=== PATIENT | male | born 1975 | race African-American/Black ===

== ENCOUNTER 2018-05-27 14:31 | Emergency (ER) | payer BC ==
[2018-05-27 14:53] VITALS: BMI 25.8
--- NOTE | 2018-05-27 14:54 | PDOC ---
Rapid Medical Evaluation Chief Complaint: Palpitations Medical Evaluation: Allergies Allergy/AdvReac Type Severity Reaction Status Date / Time No Known Allergies Allergy Verified 05/27/18 14:49 05/27/18 14:50 I have performed a brief in-person evaluation of this patient. The patient presents with a chief complaint of:epigastric pain Pertinent physical exam findings: well , abd soft I have ordered the following: ekg done The patient will proceed to the ED for further evaluation.
--- NOTE | 2018-05-27 15:12 | PDOC ---
History of Present Illness - General Chief Complaint: Nausea/Vomiting Stated Complaint: PALPITATIONS Time Seen by Provider: 05/27/18 15:09 History Source: Patient Exam Limitations: No Limitations Past History - Travel Traveled outside of the country in the last 30 days: No Close contact w/someone who was outside of country & ill: No - Past Medical History Allergies/Adverse Reactions: Allergies Allergy/AdvReac Type Severity Reaction Status Date / Time No Known Allergies Allergy Verified 05/27/18 14:49 Home Medications: Ambulatory Orders NK [No Known Home Medication] 05/27/18 Cardiac Disorders: No Hx Myocardial Infarction: No GI Disorders: No HTN: No Hypercholesterolemia: No - Surgical History Abdominal Surgery: No - Family Disease History Family Disease History: Other: Mother (stroke, age 65) - Immunization History Immunization Up to Date: Yes - Suicide/Smoking/Psychosocial Hx Smoking History: Never smoked Hx Alcohol Use: No Drug/Substance Use Hx: No Review of Systems - Review of Systems Able to Perform ROS?: Yes Is the patient limited French proficient: No *Physical Exam - Vital Signs Last Vital Signs Temp Pulse Resp BP Pulse Ox 98.3 F 82 18 134/93 100 05/27/18 14:50 05/27/18 14:50 05/27/18 14:50 05/27/18 14:50 05/27/18 14:50 Moderate Sedation - Procedure Monitoring Vital Signs: Procedure Monitoring Vital Signs Temperature 98.3 F 05/27/18 14:50 Pulse Rate 82 05/27/18 14:50 Respiratory Rate 18 05/27/18 14:50 Blood Pressure 134/93 05/27/18 14:50 O2 Sat by Pulse Oximetry (%) 100 05/27/18 14:50 ED Treatment Course - LABORATORY CBC & Chemistry Diagram: 05/27/18 15:40 05/27/18 15:40 Medical Decision Making - Medical Decision Making Pt was seen at bedside, also will be seen by attending Dr. Joe. Pt presenting with complaints of burning diffuse abdominal pain, worse in the epigastric area. The pain started about 3 days ago, and has been associated with vomiting and abdominal cramping before BMs since yesterday. Pt states the pain is worsened after eating. Pt also admits to dysuria x1 week. Pt recently moved from [facility] 1 year ago and did not have regular PCP follow-up while in [facility]. PE showed no abdominal tenderness during palpation, no rebound, no guarding. No CVA tenderness. Considering gastritis/reflux, vs cholecystitis vs pancreatitis vs gastroenteritis vs appendicitis vs ACS. Pt has no risk factors for ACS ( negative family history, nonsmoker, no HTN). Ordered work-up including CBC, CMP, PT/INR, Provided GI cocktail (40 mg IV pepcid, viscous lidocaine, 30 mg maalox) and IV 1 L NS for improvement of pain/indigestion. Will continue to reassess pt and monitor for symptomatic improvement. ECG showed NSR, normal intervals, no significant ST elevations or depressions. Bedside US showed contracted GB, no GB distension or CBD distension or stones. 05/27/18 16:35 Labs generally WNL. Trop <.02, lipase 125 UA negative for infection. Pt will be taken for CT abd/pelvis with IV contrast to r/o appendicitis and other abdominal pathology. 05/27/18 17:32 Chest x-ray showed no acute pathology. Pt in CT scan. 05/27/18 17:[address] scan read for disposition. Pt signed out to next resident team. Explained presentation, ED course, any pending results, and needed interventions to resident Dr. Russ. 05/27/18 18:47 *DC/Admit/Observation/Transfer Diagnosis at time of Disposition: Abdominal pain Qualifiers: Abdominal location: epigastric Qualified Code(s): R10.13 - Epigastric pain - Discharge Dispostion Disposition: HOME Condition at time of disposition: Improved Decision to Admit order: No - Referrals Referrals: [facility] [place] [Provider Group] Sanchez Arboleda MD [Staff Physician] - - Patient Instructions Printed Discharge Instructions: DI for Epigastric Pain Additional Instructions: You were seen in the ER today for abdominal pain. The results of your labs today were normal. Please follow-up with the primary care doctor appointment that was made for you to discuss your visit and make sure your symptoms have improved. Please return to the ER if you have any worsening pain, development of fevers or chills, blood in the vomit or stool, loss of consciousness, inability to tolerate food or fluids, or any other concerns. - Post Discharge Activity
[2018-05-27] MEDS ORDERED: SODIUM CHLORIDE 1,000 ML IV STA (15:30)
[2018-05-27] MEDS ORDERED: ONDANSETRON 4 MG/2 ML VIAL IVPUSH ONE (15:30)
[2018-05-27] MEDS ORDERED: FAMOTIDINE 20 MG/50 ML IVPB 20 MG/50 ML MG IVPB ONE ×2 (15:30→15:38)
[2018-05-27] MEDS ORDERED: MAG HYDROX/AL HYDROX/SIMETH 30 ML UNIT-DOSE CUP PO ONE (15:30)
[2018-05-27] MEDS ORDERED: LIDOCAINE VISCOUS 2% ORAL/TOP 20 ML UNIT-DOSE CUP MM ONE (15:31)
[2018-05-27] MEDS ORDERED: LIDOCAINE VISCOUS 2% ORAL/TOP 20 ML UNIT-DOSE CUP ONE (15:37)
[2018-05-27] MEDS ORDERED: MAG HYDROX/AL HYDROX/SIMETH 30 ML UNIT-DOSE CUP ONE (15:37)
[2018-05-27] MEDS ORDERED: ONDANSETRON 4 MG/2 ML VIAL ONE (15:37)
[2018-05-27 16:15] LABS: BASO % 0.2 % (0-2.0); EOS % 6.8 % (0-4.5); HEMATOCRIT 47.1 % (35.4-49); HEMOGLOBIN 16.1 GM/dL (11.7-16.9); LYMPH % 22.3 % (8-40); MCH 28.2 pg (25.7-33.7); MCHC 34.1 g/dl (32.0-35.9); MEAN CELL VOLUME 82.7 fl (80-96); NEUT % 62.7 % (42.8-82.8); RBC 5.69 M/mm3 (4.00-5.60); RDW 13.7 % (11.9-15.9); WHITE BLOOD COUNT 4.8 K/mm3 (4.0-10.0)
--- NOTE | 2018-05-27 16:38 | PDOC ---
Attending Attestation - Resident Resident Name: Lindsey Vargas - ED Attending Attestation I have performed the following: I have examined & evaluated the patient, The case was reviewed & discussed with the resident, I agree w/resident's findings & plan, Exceptions are as noted - HPI HPI: 05/27/18 16:32 42-year-old male no history of past medical problems here today complaining of epigastric and lower abdominal pain. Patient states his symptoms started 3-4 days ago has had intermittent nausea and vomiting denies weight loss fever or chills does describe some dysuria with urination no flank pain pain is generalized no moderating factors he describes as sharp. No known history of reflux or cholelithiasis patient is from [facility] and has been recently moved to [place] one year ago - Physicial Exam PE: 05/27/18 16:36 Awake alert no acute distress lungs are clear bilaterally heart is regular without any murmurs rubs or gallops abdomen is soft mild epigastric tenderness also has mild bilateral lower quadrant tenderness no rebound no guarding no CVA tenderness neuro alert and oriented 3 skin warm and dry no rash - Medical Decision Making 05/27/18 16:38 Differential diagnosis includes gastritis, GERD, reflux, pancreatitis, cholelithiasis, cholecystitis, UTI pyelonephritis. In plan focus ED ultrasound right upper quadrant labs including CBC CMP and lipase. GI cocktail Focus ED ultrasound right upper quadrant patient: Epigastric pain Gallbladder was scanned into planes using the curvilinear probe. No wall thickening edema or pericholecystic fluid. The ultrasound is somewhat limited due to the fact the gallbladder has a contracted appearance CBD measured 2.8 mm wall was upper limits of normal but contracted impression contracted gallbladder UA pending labs are unremarkable if UAs negative will consider CT abdomen and pelvis to rule out other causes of abdominal pain mentioned above
[2018-05-27 16:40] LABS: URINE APPEARANCE CLEAR; URINE BILIRUBIN NEGATIVE (<2.0 mg/dL); URINE COLOR YELLOW; URINE GLUCOSE (UA) NEGATIVE (NEGATIVE); URINE KETONE TRACE (NEGATIVE); URINE LEUK ESTERASE NEGATIVE (NEGATIVE); URINE NITRITE NEGATIVE (NEGATIVE); URINE PROTEIN NEGATIVE (NEGATIVE); URINE UROBILINOGEN NEGATIVE mg/dL (0.2-1.0)
[2018-05-27 16:46] LABS: ALK PHOS 71 U/L (45-117); ANION GAP 5 MMOL/L (8-16); BILIRUBIN,TOTAL 0.6 mg/dL (0.2-1); BLOOD UREA NITROGEN 22 mg/dL (7-18); CHLORIDE 103 mmol/L (98-107); CO2 29 mmol/L (21-32); CREATININE 1.2 mg/dL (0.55-1.3); GLUCOSE,RANDOM 80 mg/dL (74-106); LIPASE 125 U/L (73-393); POTASSIUM 4.1 mmol/L (3.5-5.1); SGOT/AST 38 U/L (15-37); SGPT/ALT 42 U/L (13-61); SODIUM 137 mmol/L (136-145); TOT PROT 7.5 g/dl (6.4-8.2)
[2018-05-27 16:58] LABS: PLATELET COUNT 101 K/MM3 (134-434); PLATELET ESTIMATE DECREASED
[2018-05-27 17:24] LABS: INR 1.18 (0.83-1.09)
[2018-05-27 18:51] VITALS: BP 114/78; PULSE 78; TEMP 98.2
--- NOTE | 2018-05-28 09:48 | EKG ---
Test Reason : Blood Pressure : / mmHG Vent. Rate : 067 BPM Atrial Rate : 067 BPM P-R Int : 140 ms QRS Dur : 090 ms QT Int : 384 ms P-R-T Axes : 071 061 050 degrees QTc Int : 405 ms POOR DATA QUALITY, INTERPRETATION MAY BE ADVERSELY AFFECTED NORMAL SINUS RHYTHM WITH SINUS ARRHYTHMIA POSSIBLE LEFT ATRIAL ENLARGEMENT BORDERLINE ECG NO PREVIOUS ECGS AVAILABLE Confirmed by IMTIAZ HEART, RODNEY ([id number]) on 05/28/2018 9:47:37 AM Referred By: Confirmed By:RODNEY KITCHEN MD
== END 2018-05-27 20:05 | disposition home or self-care (01) ==
LOC: JER 14:31
PROC: 3E033GC Introduction of Other Therapeutic Substance into Peripheral Vein, Percutaneous Approach (ICD-10-PCS; principal; 2018-05-27)
PROC: 3E033GC Introduction of Other Therapeutic Substance into Peripheral Vein, Percutaneous Approach (ICD-10-PCS; 2018-05-27)
PROC: BF42ZZZ Ultrasonography of Gallbladder (ICD-10-PCS; 2018-05-27)
DX: R10.13 Epigastric pain (principal)
CPT/HCPCS: 36415; 71046-TC-FY; 74177-TC; 80053; 81003; 83690; 84484; 85025; 85610; 87086; 93005; 93010; 99282-25; C1887; J7030

== ENCOUNTER 2018-05-29 18:44 | Inpatient (IN) | payer BC ==
--- NOTE | 2018-05-29 18:57 | PDOC ---
Rapid Medical Evaluation Chief Complaint: Pain, Acute Medical Evaluation: Allergies Allergy/AdvReac Type Severity Reaction Status Date / Time No Known Allergies Allergy Verified 05/29/18 18:54 I have performed a brief in-person evaluation of this patient. The patient presents with a chief complaint of: Epigastric pain x 3 days with emesis; seen 2 days for similar complaints and had labs, ultrasound and CT done. Denies diarrhea. Patient noted having hematemesis today. CT A/P shows concern for ileus and possible colitis (though no explanation of CT imaging is written in the prior notes). Last BM today. The patient will proceed to the ED for further evaluation. 05/29/18 18:55
[2018-05-29] MEDS ORDERED: PANTOPRAZOLE SODIUM 40 MG VIAL IVPUSH ONE (19:01)
[2018-05-29] MEDS ORDERED: ONDANSETRON 4 MG/2 ML VIAL IVPUSH ONE (19:01)
[2018-05-29] MEDS ORDERED: SODIUM CHLORIDE 1,000 ML IV STA (19:01)
[2018-05-29 20:15] LABS: BASO % 0.2 % (0-2.0); EOS % 6.3 % (0-4.5); HEMATOCRIT 48.7 % (35.4-49); HEMOGLOBIN 16.8 GM/dL (11.7-16.9); LYMPH % 18.3 % (8-40); MCH 28.3 pg (25.7-33.7); MCHC 34.4 g/dl (32.0-35.9); MEAN CELL VOLUME 82.3 fl (80-96); MONO % 6.7 % (3.8-10.2); NEUT % 68.5 % (42.8-82.8); PLATELET COUNT 120 K/MM3 (134-434); RBC 5.91 M/mm3 (4.00-5.60); RDW 13.5 % (11.9-15.9); WHITE BLOOD COUNT 5.5 K/mm3 (4.0-10.0)
[2018-05-29 20:43] LABS: ALBUMIN 4.2 g/dl (3.4-5.0); ALK PHOS 71 U/L (45-117); ANION GAP 5 MMOL/L (8-16); BILIRUBIN,TOTAL 0.7 mg/dL (0.2-1); BLOOD UREA NITROGEN 16 mg/dL (7-18); CALCIUM 9.1 mg/dL (8.5-10.1); CHLORIDE 103 mmol/L (98-107); CO2 31 mmol/L (21-32); CREATININE 1.2 mg/dL (0.55-1.3); GLUCOSE,RANDOM 106 mg/dL (74-106); LIPASE 124 U/L (73-393); POTASSIUM 3.9 mmol/L (3.5-5.1); SGOT/AST 39 U/L (15-37); SGPT/ALT 39 U/L (13-61); SODIUM 138 mmol/L (136-145)
[2018-05-29] MEDS ORDERED: ONDANSETRON 4 MG/2 ML VIAL ONE (20:48)
[2018-05-29] MEDS ORDERED: PANTOPRAZOLE SODIUM 40 MG VIAL ONE ×2 (20:48→20:49)
--- NOTE | 2018-05-29 21:09 | PDOC ---
Attending Attestation - HPI HPI: 05/29/18 21:58 The patient is a 42 year old male with no significant past medical history who presents to the ED with epigastric pain for several days. The patient was seen in the ED 2 day ago for epigastric pain, US negative, CT showed ileus vs ileitis and was discharged home. Patient followed up with PCP earlier today and was prescribed medication that he has not yet picked up. Patient comes into the ED today for worsening epigastric pain, and an episode of nausea and dry heaving with slight blood. Patient also reports one normal bowel movement earlier today and is able to pass gas. Denies fever or chills. Denies vomiting. Denies chest pain or shortness of breath. Denies nasal congestion or headache. Denies dysuria or change in urinary output. Denies any other symptoms. - Physicial Exam PE: 05/29/18 21:58 Constitutional: Awake, alert, oriented. No acute distress. Head: Normocephalic. Atraumatic Eyes: PERRL. EOMI. Conjunctivae are not pale. ENT: Mucous membranes are moist and intact. Posterior pharynx without exudates or erythema. Uvula midline. Neck: Supple. Full ROM. No lymphadenopathy. Cardiovascular: Regular rate. Regular rhythm. S1, S2 regular. Distal pulses are 2+ and symmetric. Pulmonary/Chest: No evidence of respiratory distress. Clear to auscultation bilaterally No wheezing, rales or rhonchi. Abdominal: + Right inguinal hernia that is reducible. mild mid abdominal pain. Soft and non-distended. . No rebound, guarding or rigidity. No organomegaly. No palpable masses. Good bowel sounds. Back: No CVA tenderness. Musculoskeletal: No edema. No cyanosis. No clubbing. Full range of motion in all extremities. Nocalf tenderness. Radial/pedal pulses are intact and 2+ bilaterally Skin: Skin is warm and dry. No petechiae. No purpura. Neurological: Alert and oriented to person, place, and time. Cranial nerves II -XII are grossly intact. Normal speech. Strength is grossly symmetric. No sensory deficits. Psychiatric: Good eye contact. Normal interaction, affect and behavior. <Yadira Latham - Last Filed: 05/29/18 21:57> - Resident Resident Name: Lindsey Vargas - ED Attending Attestation I have performed the following: I have examined & evaluated the patient, The case was reviewed & discussed with the resident, I agree w/resident's findings & plan, Exceptions are as noted - Medical Decision Making 05/29/18 21:09 I, Dr. Daja Diaz, DO, attest that this document has been prepared under my direction and personally reviewed by me in its entirety. I further attest, that it accurately reflects all work, treatment, procedures and medical decision -making performed by me. 05/29/18 21:53 a/p: 42yo male with abd pain - had bm and passing flatus, dry heaving today -had a poss ileus [address] -will send labs -will repeat abd xray - eval for dilated loops -abd is nondistended -pt is nontoxic in appearance 05/30/18 00:11 persistent ileus on xray with n/v today -did have a bm -will place in obs resident discussed the case with [facility] who accepts pt to service <Daja Diaz - Last Filed: 05/30/18 00:17> Attestations - Attestations 05/29/18 21:58 Documentation prepared by Yadira Latham, acting as medical record technician for Daja Diaz DO <Yadira Latham - Last Filed: 05/29/18 21:57>
--- NOTE | 2018-05-29 21:10 | PDOC ---
History of Present Illness - General Chief Complaint: Pain, Acute Stated Complaint: CHEST/STOMACH PAIN Time Seen by Provider: 05/29/18 21:04 History Source: Patient Exam Limitations: No Limitations - History of Present Illness Initial Comments: Pt is a 42 yo M, with no significant PMH, who is is presenting with complaints of burning diffuse abdominal pain, worse in the epigastric area, and emesis with streaks of blood. The pain started about 5 days ago, and has been associated with vomiting and abdominal cramping before BMs since his last visit to the ER on 05/27. Pt states the pain is worsened after eating, and comes about 30 minutes after a meal. Today the pt was dry-heaving in an attempt to vomit, put his fingers in his throat, and noticed small streaks of blood ("less than a spoonful"). Pt also admits to dysuria x1-2 weeks, with no hematuria, and was told in [place] he has "a big prostate". Pt recently moved from [facility] 1 year ago and did not have regular PCP follow-up while in [facility]. Pt was last seen at [facility] 2 days ago, and had work-up done at that time which showed negative troponin, no UTI, and CT with possible ileus/colitis/diverticulitis. Pt went to his PCP appointment today (which was scheduled for him during last ER visit) , but went home to have a BM and was unable to take any of the medications the PCP sent to the pharmacy because he was feeling worse. His BMs are normal for him with no blood. He has been tolerating minimal food and fluid intake due to abdominal discomfort and nausea. Pt denies any fevers/chills, headache, vision changes, chest pain, palpitations, SOB, diarrhea/constipation, or leg swelling. Social: Pt denies any cigarette, alcohol, or drug use. Pt denies any recent sick contacts, but came from [facility] x1 year ago. Surgical: no relevant history Family: mother with stroke age 65 05/30/18 18:17 Past History - Travel Traveled outside of the country in the last 30 days: No Close contact w/someone who was outside of country & ill: No - Past Medical History Allergies/Adverse Reactions: Allergies Allergy/AdvReac Type Severity Reaction Status Date / Time No Known Allergies Allergy Verified 05/29/18 18:54 Home Medications: Ambulatory Orders Omeprazole 20 mg PO DAILY 05/30/18 Cardiac Disorders: No COPD: No Diabetes: No GI Disorders: No HTN: No Hypercholesterolemia: No Other medical history: "enlarged prostate" - Surgical History Abdominal Surgery: No GI Surgery: No - Family Disease History Family Disease History: Other: Mother (stroke, age 65) - Immunization History Immunization Up to Date: Yes - Suicide/Smoking/Psychosocial Hx Smoking History: Never smoked Hx Alcohol Use: No Drug/Substance Use Hx: No Review of Systems - Review of Systems Able to Perform ROS?: Yes Is the patient limited Persian proficient: No Constitutional: Yes: Loss of Appetite, Weight Stable. No: Chills, Diaphoresis, Fever, Weakness HEENTM: No: Recent change in vision, Nose Congestion, Throat Pain, Throat Swelling, Difficulty Swallowing Respiratory: No: Cough, Orthopnea, Shortness of Breath Cardiac (ROS): No: Chest Pain, Edema, Lightheadedness, Palpitations, Syncope, Chest Tightness ABD/GI: Yes: Nausea, Poor Appetite, Poor Fluid Intake, Vomiting, Indigestion, Abdominal cramping, Other (blood streak vomit). No: Abdominal Distended, Abd. Pain w/ defecation, Blood Streaked Bowels, Constipated, Diarrhea, Rectal Bleeding, Tarry Stools : Yes: Burning, Dysuria, Pain. No: Discharge, Frequency, Flank Pain, Hematuria, Incontinence, Urgency, Testicular Pain Musculoskeletal: No: Back Pain, Joint Pain, Muscle Weakness Integumentary: No: Rash Neurological: No: Headache, Numbness, Weakness, Unsteady Gait, Ataxia, Dizziness Psychiatric: Yes: Change in Appetite (only due to abdominal discomfort). No: Sleep Pattern Change Endocrine: No: Increased Urine, Change in Weight Hematologic/Lymphatic: No: Anemia, Blood Clots, Easy Bleeding, Easy Bruising All Other Systems: Reviewed and Negative *Physical Exam - Vital Signs Last Vital Signs Temp Pulse Resp BP Pulse Ox 98.2 F 76 16 147/97 97 05/29/18 18:54 05/29/18 18:54 05/29/18 18:54 05/29/18 18:54 05/29/18 18:54 - Physical Exam General Appearance: Yes: Nourished, Appropriately Dressed. No: Apparent Distress HEENT: positive: EOMI, WYATT, Normal ENT Inspection, Normal Voice, Pharynx Normal , Hearing Grossly Normal. negative: Scleral Icterus (R), Scleral Icterus (L), Pharyngeal Erythema, Tonsillar Exudate, Tonsillar Erythema, Rhinorrhea Neck: positive: Trachea midline, Normal Thyroid, Supple. negative: Tender, Rigid, Lymphadenopathy (R), Lymphadenopathy (L), Rigidity Respiratory/Chest: positive: Lungs Clear, Normal Breath Sounds. negative: Chest Tender, Respiratory Distress, Accessory Muscle Use, Decreased Breath Sounds, Crackles, Wheezing Cardiovascular: positive: Regular Rhythm, Regular Rate, S1, S2. negative: Edema , JVD, Murmur Vascular Pulses: Carotid (R): 4+, Carotid (L): 4+ Gastrointestinal/Abdominal: positive: Normal Bowel Sounds, Tender (mild epigastric, no rebound no guarding), Flat, Soft. negative: Organomegaly, Pulsatile Mass, Distended, Guarding, Rebound Rectal Exam: positive: heme negative stool, normal exam, NL Prostate, normal rectal tone. negative: melena, heme positive stool, hemorrhoids Lymphatic: negative: Adenopathy, Tenderness Musculoskeletal: positive: Normal Inspection. negative: CVA Tenderness Extremity: positive: Normal Capillary Refill, Normal Inspection, Normal Range of Motion, Pelvis Stable. negative: Tender, Pedal Edema Integumentary: positive: Normal Color, Dry, Warm. negative: Jaundice, Clammy, Diaphoresis, Rash, Ecchymosis Neurologic: positive: crystal calibrator II-XII NML intact, Fully Oriented, Alert, Normal Mood/ Affect, Normal Response, Motor Strength 5/5 Moderate Sedation - Procedure Monitoring Vital Signs: Procedure Monitoring Vital Signs Temperature 98.2 F 05/29/18 18:54 Pulse Rate 76 05/29/18 18:54 Respiratory Rate 16 05/29/18 18:54 Blood Pressure 147/97 05/29/18 18:54 O2 Sat by Pulse Oximetry (%) 97 05/29/18 18:54 ED Treatment Course - LABORATORY CBC & Chemistry Diagram: 05/30/18 06:00 05/30/18 06:00 - ADDITIONAL ORDERS Additional order review: Laboratory Results 05/29/18 19:56 Sodium 138 Potassium 3.9 Chloride 103 Carbon Dioxide 31 Anion Gap 5 L BUN 16 Creatinine 1.2 Creat Clearance w eGFR > 60 Random Glucose 106 Calcium 9.1 Total Bilirubin 0.7 AST 39 H ALT 39 Alkaline Phosphatase 71 Total Protein 8.0 Albumin 4.2 Lipase 124 05/29/18 19:56 RBC 5.91 H MCV 82.3 MCHC 34.4 RDW 13.5 MPV 12.0 H Neutrophils % 68.5 Lymphocytes % 18.3 Monocytes % 6.7 Eosinophils % 6.3 H Basophils % 0.2 - Medications Given in the ED: ED Medications Discontinued Medications Generic Name Dose Route Start Last Admin Trade Name Gerardo PRN Reason Stop Dose Admin Sodium Chloride 1,000 mls @ 1,000 mls/hr 05/29/18 19:01 05/29/18 21:03 Normal Saline - IV 05/29/18 20:00 1,000 mls/hr ASDIR STA Administration Ondansetron HCl 4 mg 05/29/18 19:01 05/29/18 21:03 Zofran Injection IVPUSH 05/29/18 19:02 4 mg ONCE ONE Administration Pantoprazole Sodium 40 mg 05/29/18 19:01 05/29/18 21:03 Protonix Iv IVPUSH 05/29/18 19:02 40 mg ONCE ONE Administration Medical Decision Making - Medical Decision Making Pt was seen at bedside, also seen by Dr. Diaz. Pt is presenting with complaints of burning diffuse abdominal pain, worse in the epigastric area, and emesis with streaks of blood. The pain started about 5 days ago, and has been associated with vomiting and abdominal cramping before BMs since his last visit to the ER on 05/27. Pt states the pain is worsened after eating, and comes about 30 minutes after a meal. Today the pt was dry-heaving in an attempt to vomit, put his fingers in his throat, and noticed small streaks of blood ("less than a spoonful"). Pt also admits to dysuria x1-2 weeks, with no hematuria, and was told in [place] he has "a big prostate". Pt recently moved from [facility] 1 year ago and did not have regular PCP follow-up while in [facility]. Pt was last seen at [facility] 2 days ago, and had work-up done at that time which showed negative troponin, no UTI, and CT with possible ileus/colitis/diverticulitis. Pt went to his PCP appointment today (which was scheduled for him during last ER visit) , but went home to have a BM and was unable to take any of the medications the PCP sent to the pharmacy because he was feeling worse. His BMs are normal for him with no blood. He has been tolerating minimal food and fluid intake due to abdominal discomfort and nausea. Pt denies any fevers/chills, headache, vision changes, chest pain, palpitations, SOB, diarrhea/constipation, or leg swelling. Abd/pelvis CT from last visit 05/27/2018: Impression: Lack of oral contrast administration is limiting this exam. Mild dilatation of the proximal small bowel loops with air-fluid levels suggestive of ileus. Cannot rule out ileitis. Likely partial visualization of a normal-appearing appendix. No secondary signs of acute appendicitis are identified. Nondistention of the colon limiting evaluation of its wall. Thickening of the distal descending and sigmoid colon wall down to the rectosigmoid junction cannot be excluded. Cannot rule out colitis. Correlate clinically and further evaluation is needed. Diverticulosis coli in the mid sigmoid colon without evidence of acute diverticulitis. PE showed mild epigastric tenderness during palpation, no rebound, no guarding. No CVA tenderness. Considering ileus vs gastritis/reflux, vs colitis/diverticulitis. Pt has no risk factors for ACS (negative family history, nonsmoker, no HTN) and cardiac work-up 2 days ago was negative. Ordered work-up including CBC, CMP, abdomen x-ray (3 views). Provided 1 L IV NS, 4 mg IV zofran, 40 mg IV protonix. Will continue to reassess pt and monitor for symptomatic improvement. 05/29/18 21:40 CBC showed no >WBC, but eosionphilic predominance. CMP generally WNL. Abdominal x-ray showed continued ileus with air fluid levels throughout. Stool for occult blood negative. Rectal exam showed no prostate tenderness, prostate soft/non-nodular. Paged hospitalist team for admission. 05/29/18 22:24 (entered later) Pt was accepted by hospitalist team and was seen shortly after initial page in the ER. Pt was lying comfortably, pain well-controlled. Pt was discussed with night resident team for serial reassessments. Pt was transferred to [facility] in cardiac cath holding area and has been evaluated by hospitalist team. 05/30/18 12:20 05/30/18 18:12 *DC/Admit/Observation/Transfer Diagnosis at time of Disposition: Ileus Intractable vomiting Qualifiers: Vomiting type: unspecified Nausea presence: with nausea Qualified Code(s): R11.2 - Nausea with vomiting, unspecified Abdominal pain Qualifiers: Abdominal location: epigastric Qualified Code(s): R10.13 - Epigastric pain - Discharge Dispostion Condition at time of disposition: Stable Decision to Admit order: Yes - Referrals - Patient Instructions - Post Discharge Activity
--- NOTE | 2018-05-30 00:34 | HP ---
CHIEF COMPLAINT: PCP: HISTORY OF PRESENT ILLNESS: 42 yo M with no significant PMH who p/w epigastric pain and vomiting worse w/ food x5d. The patient was seen in the ER 2 day ago for epigastric pain and vomiting and CT showed ileus vs ileitis vs colitis, but he was discharged. Abd U /S at that time was nl. Patient followed up with PCP earlier today and was prescribed medication that he has not yet picked up. Patient comes into the ER today for worsening epigastric pain, and an episode of nausea and dry heaving with slight blood. Patient also reports one normal bowel movement earlier today and is able to pass gas. Denies fever or chills. He has been in [facility] within the past 1 year. work-up done at last ED visit negative troponin, no UTI, Of note, admits to dysuria, dribbling, straining to pee, was told in [place] he has enlarged prostate. ER course was notable for: (1)1L NS, protonix 40, zofran (2)Abd XR, FOBT neg, lipase 124 (3)eosinophilia 6.3 Recent Travel: PAST MEDICAL HISTORY: Pt recently moved from [facility] 1 year ago and did not have regular PCP follow-up while in [facility]. 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 HEAD: Normal with no signs of trauma. EYES: Pupils equal, round and reactive to light, extraocular movements intact, sclera anicteric, conjunctiva clear. No lid lag. EARS, NOSE, THROAT: Ears normal, nares patent, oropharynx clear without exudates. Moist mucous membranes. NECK: Normal range of motion, supple without lymphadenopathy, JVD, or masses. LUNGS: Breath sounds equal, clear to auscultation bilaterally. No wheezes, and no crackles. No accessory muscle use. HEART: Regular rate and rhythm, normal S1 and S2 without murmur, rub or gallop. ABDOMEN: Soft, mild diffuse ttp, not distended, normoactive bowel sounds, no guarding, no rebound, no masses. MUSCULOSKELETAL: Normal range of motion at all joints. No bony deformities or tenderness. UPPER EXTREMITIES: 2+ pulses, warm, well-perfused. No cyanosis. No clubbing. No peripheral edema. LOWER EXTREMITIES: 2+ pulses, warm, well-perfused. No calf tenderness. No peripheral edema. NEUROLOGICAL: Cranial nerves II-XII intact. Normal speech. PSYCHIATRIC: Cooperative. Good eye contact. Appropriate mood and affect. SKIN: Warm, dry, normal turgor, no rashes or lesions noted, normal capillary refill. Laboratory Results - last 24 hr 05/29/18 05/29/18 05/29/18 19:56 19:56 22:00 WBC 5.5 RBC 5.91 H Hgb 16.8 Hct 48.7 MCV 82.3 MCH 28.3 MCHC 34.4 RDW 13.5 Plt Count 120 L MPV 12.0 H Absolute Neuts (auto) 3.7 Neutrophils % 68.5 Lymphocytes % 18.3 Monocytes % 6.7 Eosinophils % 6.3 H Basophils % 0.2 Nucleated RBC % 0 Sodium 138 Potassium 3.9 Chloride 103 Carbon Dioxide 31 Anion Gap 5 L BUN 16 Creatinine 1.2 Creat Clearance w eGFR > 60 Random Glucose 106 Calcium 9.1 Total Bilirubin 0.7 AST 39 H ALT 39 Alkaline Phosphatase 71 Total Protein 8.0 Albumin 4.2 Lipase 124 Stool Occult Blood Negative ASSESSMENT/PLAN: 42 yo M with no significant PMH who p/w epigastric pain and vomiting worse w/ food x5d. CT showed ileus vs ileitis vs colitis Colitis/Ileitis ? - CT showed ileus vs ileitis vs colitis. Abd U/S. f/u Abd XR FOBT neg, lipase 124 s/p 1L NS, protonix 40, zofran in ED IV flagyl and rocephin IV NS 125cc NPO zofran and protonix. GI consult ID consult f/u EKG for Qtc eosinophilia and thrombocytopenia - will send blood and stool tests for parasites, no diarrhea noted consider blood tests for tick borne diseases. BPH? - admits to dysuria, dribbling, straining to pee, was told in [place] he has enlarged prostate. urology referral consider prostate sonogram PSA FEN NS 125cc replete prn NPO DVT prophylaxis - Lovenox 40 mg SQ q 24 hours. Advance directives - Full code Dispo Obs Visit type - Emergency Visit Emergency Visit: Yes ED Registration Date: 05/29/18 Care time: The patient presented to the Emergency Department on the above date and was hospitalized for further evaluation of their emergent condition. - New Patient This patient is new to me today: Yes Date on this admission: 05/30/18 - Critical Care Critical Care patient: No
[2018-05-30] MEDS ORDERED: ONDANSETRON 4 MG/2 ML VIAL IVPUSH PRN (01:38)
[2018-05-30] MEDS ORDERED: SODIUM CHLORIDE 1,000 ML IV SCH (01:45)
--- NOTE | 2018-05-30 03:28 | PN ---
Teaching Attending Note Name of Resident: Almas Yost ATTENDING PHYSICIAN STATEMENT I saw and evaluated the patient. I reviewed the resident's note and discussed the case with the resident. I agree with the resident's findings and plan as documented. SUBJECTIVE: Patient is a 42 year old male with no significant PMH who presents to the ER with epigastric pain for several days. The patient was seen in the ER 2 day ago for epigastric pain and vomiting and CT showed ileus vs ileitis vs colitis, but he was discharged. Patient followed up with PCP earlier today and was prescribed medication that he has not yet picked up. Patient comes into the ER today for worsening epigastric pain, and an episode of nausea and dry heaving with slight blood. Patient also reports one normal bowel movement earlier today and is able to pass gas. Denies fever or chills. He has been in [facility] within the past 1 year. OBJECTIVE: Alert Vital Signs Period Temp Pulse Resp BP Sys/Goodman Pulse Ox Last 24 Hr 98.2 F 76 16 147/97 97 HEENT: No Jaundice, eye redness or discharge, PERRLA, EOMI. Normocephalic, atraumatic. External ears are normal and hearing is grossly intact. No nasal discharge. Neck: Supple, nontender. No palpable adenopathy or thyromegaly. No JVD Chest: Good effort. Clear to auscultation and percussion. Heart: Regular. No S3, rub or murmur Abdomen: Not distended, soft, mildly tender and no HSM. No rebound or guarding. Normoactive bowel sounds. Ext: Peripheral pulses intact. No leg edema. Skin: Warm and dry. No petechiae, rash or ecchymosis. Neuro: Alert. Oriented x3. CN 2-12 grossly intact. Sensation grossly intact in all four extremities and DTR are symmetric. Current Medications Generic Name Dose Route Start Last Admin Trade Name Freq PRN Reason Stop Dose Admin Enoxaparin Sodium 40 mg 05/30/18 10:00 Lovenox - SQ DAILY VINCENT Sodium Chloride 1,000 mls @ 125 mls/hr 05/30/18 01:45 05/30/18 02:35 Normal Saline - IV 125 mls/hr ASDIR VINCENT Administration Metronidazole 500 mg in 100 mls @ 100 mls/hr 05/30/18 03:00 05/30/18 03:06 Flagyl 500mg Premixed Ivpb - IVPB 100 mls/hr Q6H-IV VINCENT Administration Ceftriaxone Sodium 1 gm/ 50 mls @ 100 mls/hr 05/30/18 10:00 Dextrose IVPB DAILY VINCENT Protocol Ondansetron HCl 4 mg 05/30/18 01:38 Zofran Injection IVPUSH Q6H PRN NAUSEA Pantoprazole Sodium 40 mg 05/30/18 10:00 Protonix Iv IVPUSH DAILY [facility] Home Medications Medication Instructions Recorded NK [No Known Home Medication] 05/27/18 Abnormal Lab Results 05/29/18 05/29/18 19:56 19:56 RBC 5.91 H Plt Count 120 L MPV 12.0 H Eosinophils % 6.3 H Anion Gap 5 L AST 39 H ASSESSMENT AND PLAN: 1. Colitis/Ileitis ? - Will treat with IV flagyl and rocephin as well as IV NS. Keep him NPO, give zofran and protonix. Has eosinophilia and thrombocytopenia - will send blood and stool tests for parasites as well as blood tests for tick borne diseases. Consult GI and ID. Has symptoms of prostatism - get prostate sonogram and PSA. Monitor BP. 2. Obesity - Will provide patient all the necessary assistance, counseling and positive reinforcement to facilitate weight loss. Consult authorization rep. 3. DVT prophylaxis - Lovenox 40 mg SQ q 24 hours. 4. Advance directives - Full code
[2018-05-30 07:40] LABS: BASO % 0.3 % (0-2.0); HEMATOCRIT 45.3 % (35.4-49); HEMOGLOBIN 15.5 GM/dL (11.7-16.9); LYMPH % 30.4 % (8-40); MCH 28.3 pg (25.7-33.7); MCHC 34.1 g/dl (32.0-35.9); MEAN CELL VOLUME 82.9 fl (80-96); MEAN PLT VOLUME 11.8 fl (7.5-11.1); MONO % 9.4 % (3.8-10.2); NEUT % 51.9 % (42.8-82.8); PLATELET COUNT 99 K/MM3 (134-434); RBC 5.46 M/mm3 (4.00-5.60); RDW 13.7 % (11.9-15.9); WHITE BLOOD COUNT 4.4 K/mm3 (4.0-10.0)
[2018-05-30 08:19] LABS: ALBUMIN 3.3 g/dl (3.4-5.0); ALK PHOS 55 U/L (45-117); ANION GAP 7 MMOL/L (8-16); BILIRUBIN,TOTAL 0.9 mg/dL (0.2-1); BLOOD UREA NITROGEN 15 mg/dL (7-18); CALCIUM 8.5 mg/dL (8.5-10.1); CHLORIDE 106 mmol/L (98-107); CO2 28 mmol/L (21-32); CREATININE 1.1 mg/dL (0.55-1.3); GLUCOSE,RANDOM 76 mg/dL (74-106); MAGNESIUM 2.5 mg/dL (1.8-2.4); PHOSPHOROUS 3.2 mg/dL (2.5-4.9); POTASSIUM 3.5 mmol/L (3.5-5.1); SGOT/AST 26 U/L (15-37); SGPT/ALT 32 U/L (13-61); SODIUM 141 mmol/L (136-145); TOT PROT 6.4 g/dl (6.4-8.2)
[2018-05-30] MEDS: DEXTROSE 5%-LACTATED RINGERS 1,000 ML IV SCH (09:24)
--- NOTE | 2018-05-30 09:46 | CON.GI ---
Consult Consult Specialty:: GI - History of Present Illness History of Present Illness: he patient is a 42 year old male with no significant past medical history who presents to the ED with epigastric pain for several days. The patient was seen in the ED 2 day ago for epigastric pain, US negative, CT showed ileus vs ileitis and was discharged home. Patient followed up with PCP earlier today and was prescribed medication that he has not yet picked up. Patient comes into the ED today for worsening epigastric pain, and an episode of nausea and dry heaving with slight blood. Patient also reports one normal bowel movement earlier today and is able to pass gas. Denies fever or chills. Denies vomiting. Denies chest pain or shortness of breath. Denies nasal congestion or headache. Denies dysuria or change in urinary output. Denies any other symptoms. He was also noted to have increased QT interval , thrombocytopenia and multiple air fluid levels by FUA. - Alcohol/Substance Use Hx Alcohol Use: No - Smoking History Smoking history: Never smoked Home Medications - Allergies Allergies/Adverse Reactions: Allergies Allergy/AdvReac Type Severity Reaction Status Date / Time No Known Allergies Allergy Verified 05/29/18 18:54 - Home Medications Home Medications: Ambulatory Orders Omeprazole 20 mg PO DAILY 05/30/18 Review of Systems - Review of Systems Constitutional: denies: No Symptoms, Chills, Diaphoresis, Fever, Lethargy, Loss of Appetite, Malaise, Night Sweats, Unintentional Wgt. Loss, Weakness, Other Eyes: denies: No Symptoms, Blind Spots, Blurred Vision, Double Vision, Eye Pain , Floaters, Photophobia, Recent Change in Vision, Other HENT: denies: No Symptoms, Difficult Swallowing, Ear Discharge, Ear Pain, Epistaxis, Gingival Bleeding, Hearing Loss, Mouth Swelling, Nasal Congestion, Ocular Prosthesis, Throat Pain, Toothache, Ringing in Ears, Other Neck: denies: No Symptoms, Decreased ROM, Lumps, Pain on Movement, Stiffness, Swollen Glands, Tenderness, Other Cardiovascular: denies: No Symptoms, Chest Pain, Edema, Palpitations, Shortness of Breath, Other Respiratory: denies: No Symptoms, Cough, Exercise Intolerance, Hemoptysis, Orthopnea, PND, Snoring, SOB, SOB on Exertion, Wheezing, Other Gastrointestinal: denies: No Symptoms, Abdominal Pain, Bloating, Constipation, Diarrhea, Dysphagia, Indigestion, Melena, Nausea, Rectal Bleeding, Vomiting, Vomiting Blood, Other Physical Exam-GI Vital Signs: Vital Signs Temperature 98.0 F 05/30/18 06:58 Pulse Rate 68 05/30/18 06:58 Respiratory Rate 18 05/30/18 00:00 Blood Pressure 121/66 05/30/18 06:58 O2 Sat by Pulse Oximetry (%) 97 05/30/18 06:58 Constitutional: Yes: No Distress Eyes: Yes: Conjunctiva Clear HENT: Yes: Atraumatic Neck: Yes: Supple Cardiovascular: Yes: Regular Rate and Rhythm Respiratory: Yes: CTA Bilaterally Gastrointestinal Inspection: No: Distention ...Auscultate: Yes: Normoactive Bowel Sounds ...Palpate: Yes: Soft. No: Firm/Rigid, Guarding, Hepatomegaly, Mass, Pulsatile Mass, Splenomegaly, Tenderness, Epigastium (--resolved) Labs: CBC, BMP 05/30/18 06:00 05/30/18 06:00 Problem List - Problems (1) Ileus Assessment/Plan: associated with thrombocytopenia and increased Q-t interval etiology unlcear R>will need Cardiology,surgery, hematology and ID consult HepB and Hep C profile IV hydration serial abdominal examination urine toxicity hypercoaguable state w/u FUA in am Code(s): K56.7 - ILEUS, UNSPECIFIED
--- NOTE | 2018-05-30 11:24 | EKG ---
Test Reason : Blood Pressure : / mmHG Vent. Rate : 070 BPM Atrial Rate : 070 BPM P-R Int : 152 ms QRS Dur : 086 ms QT Int : 402 ms P-R-T Axes : 060 046 036 degrees QTc Int : 434 ms NORMAL SINUS RHYTHM NORMAL ECG WHEN COMPARED WITH ECG OF 27-MAY-2018 14:46, NO SIGNIFICANT CHANGE WAS FOUND Confirmed by RODNEY KITCHEN MD ([id number]) on 05/30/2018 11:24:11 AM Referred By: Confirmed By:RODNEY KITCHEN MD
[2018-05-30] MEDS: ENOXAPARIN NA (PORCINE) 40 MG/0.4 ML DISP.SYRIN SQ SCH (11:42)
[2018-05-30] MEDS: CEFTRIAXONE 1 GM in DEXTROSE 5%-WATER - 50 ML IVPB SCH (11:43)
[2018-05-30] MEDS: PANTOPRAZOLE SODIUM 40 MG VIAL IVPUSH SCH (11:43)
[2018-05-30 12:10] LABS: COCAINE, UR NEGATIVE ng/ml (CUTOFF=300); METHADONE, UR NEGATIVE ng/ml (CUTOFF=300); OPIATES, URI NEGATIVE ng/ml (CUTOFF=300); PHENCYCLIDINE,URINE NEGATIVE ng/ml (CUTOFF=25); URINE AMPHETAMINES NEGATIVE ng/ml (CUTOFF=500); URINE BARBITURATES NEGATIVE ng/ml (CUTOFF=200); URINE BENZODIAZEPINES NEGATIVE ng/ml (CUTOFF=200)
--- NOTE | 2018-05-30 14:23 | PN ---
Physical Exam: SUBJECTIVE: Patient seen and examined this AM. He states that his abdominal pain is better than yesterday and expresses that he is hungry. He states he has had normal bowel movements once or twice daily recently. He initially denied any diarrhea though his is present at bedside and states he did have a few episodes of diarrhea 3 days ago. OBJECTIVE: Vital Signs Period Temp Pulse Resp BP Sys/Goodman Pulse Ox Last 24 Hr 97.7 F-98.2 F 68-77 16-18 102-147/53-97 97-97 GENERAL: A&O, no acute distress HEAD: Normocephalic, atraumatic. EYES: PERRL, no scleral icterus EARS, NOSE, THROAT: oropharynx clear without exudates. Moist mucous membranes. NECK: supple without lymphadenopathy LUNGS: CTA b/l, no crackles or wheezes HEART: Regular rate and rhythm, normal S1 and S2 without murmur ABDOMEN: Soft, some tenderness to palpation diffusely, normoactive bowel sounds MUSCULOSKELETAL: No bony deformities or tenderness. EXTREMITIES: 2+ pulses, warm, well-perfused. No peripheral edema. NEUROLOGICAL: Cranial nerves II-XII grossly intact. Normal speech. PSYCHIATRIC: Cooperative. Good eye contact. Appropriate mood and affect. SKIN: Warm, dry, no rashes or lesions noted Laboratory Results - last 24 hr 05/29/18 05/29/18 05/29/18 19:56 19:56 22:00 WBC 5.5 RBC 5.91 H Hgb 16.8 Hct 48.7 MCV 82.3 MCH 28.3 MCHC 34.4 RDW 13.5 Plt Count 120 L MPV 12.0 H Absolute Neuts (auto) 3.7 Neutrophils % 68.5 Lymphocytes % 18.3 Monocytes % 6.7 Eosinophils % 6.3 H Basophils % 0.2 Nucleated RBC % 0 Sodium 138 Potassium 3.9 Chloride 103 Carbon Dioxide 31 Anion Gap 5 L BUN 16 Creatinine 1.2 Creat Clearance w eGFR > 60 Random Glucose 106 Calcium 9.1 Phosphorus Magnesium Total Bilirubin 0.7 AST 39 H ALT 39 Alkaline Phosphatase 71 C-Reactive Protein Total Protein 8.0 Albumin 4.2 Lipase 124 Stool Occult Blood Negative Opiates Screen Methadone Screen Barbiturate Screen Phencyclidine Screen Ur Amphetamines Screen MDMA (Ecstasy) Screen Benzodiazepines Screen Cocaine Screen U Marijuana (THC) Screen 05/30/18 05/30/1818 06:00 06:00 11:11 WBC 4.4 RBC 5.46 Hgb 15.5 Hct 45.3 MCV 82.9 MCH 28.3 MCHC 34.1 RDW 13.7 Plt Count 99 L MPV 11.8 H Absolute Neuts (auto) 2.3 Neutrophils % 51.9 D Lymphocytes % 30.4 D Monocytes % 9.4 Eosinophils % 8.0 H Basophils % 0.3 Nucleated RBC % 0 Sodium 141 Potassium 3.5 Chloride 106 Carbon Dioxide 28 Anion Gap 7 L BUN 15 Creatinine 1.1 Creat Clearance w eGFR > 60 Random Glucose 76 Calcium 8.5 Phosphorus 3.2 Magnesium 2.5 H Total Bilirubin 0.9 AST 26 ALT 32 Alkaline Phosphatase 55 C-Reactive Protein Total Protein 6.4 Albumin 3.3 L Lipase Stool Occult Blood Opiates Screen Negative Methadone Screen Negative Barbiturate Screen Negative Phencyclidine Screen Negative Ur Amphetamines Screen Negative MDMA (Ecstasy) Screen Negative Benzodiazepines Screen Negative Cocaine Screen Negative U Marijuana (THC) Screen Negative 05/30/18 12:25 WBC RBC Hgb Hct MCV MCH MCHC RDW Plt Count MPV Absolute Neuts (auto) Neutrophils % Lymphocytes % Monocytes % Eosinophils % Basophils % Nucleated RBC % Sodium Potassium Chloride Carbon Dioxide Anion Gap BUN Creatinine Creat Clearance w eGFR Random Glucose Calcium Phosphorus Magnesium Total Bilirubin AST ALT Alkaline Phosphatase C-Reactive Protein < 0.3 Total Protein Albumin Lipase Stool Occult Blood Opiates Screen Methadone Screen Barbiturate Screen Phencyclidine Screen Ur Amphetamines Screen MDMA (Ecstasy) Screen Benzodiazepines Screen Cocaine Screen U Marijuana (THC) Screen Active Medications Generic Name Dose Route Start Last Admin Trade Name Gerardo PRN Reason Stop Dose Admin Enoxaparin Sodium 40 mg 05/30/18 10:00 05/30/18 11:42 Lovenox - SQ 40 mg DAILY VINCENT Administration Metronidazole 500 mg in 100 mls @ 100 mls/hr 05/30/18 03:00 05/30/18 09:25 Flagyl 500mg Premixed Ivpb - IVPB 100 mls/hr Q6H-IV VINCENT Administration Ceftriaxone Sodium 1 gm/ 50 mls @ 100 mls/hr 05/30/18 10:00 05/30/18 11:43 Dextrose IVPB 100 mls/hr DAILY VINCENT Administration Protocol Dextrose/Lactated Ringer's 1,000 mls @ 100 mls/hr 05/30/18 08:45 05/30/18 09: 24 D5-Lr - IV 100 mls/hr ASDIR VINCENT Administration Ondansetron HCl 4 mg 05/30/18 01:38 Zofran Injection IVPUSH Q6H PRN NAUSEA Pantoprazole Sodium 40 mg 05/30/18 10:00 05/30/18 11:43 Protonix Iv IVPUSH 40 mg DAILY VINCENT Administration ASSESSMENT/PLAN: 42 yo M with no significant PMH who p/w epigastric pain and vomiting worse w/ food x5d. CT showed ileus vs ileitis vs colitis. Abdominal pain/nausea/vomiting -improved, though not resolved -KUB noted with possible obstruction, though pt is not clinically obstructed -GI Consult appreciated -Surgical consult noted, not a surgical candidate at this time -ID Consult appreciated, continue current management -Rocephin 1 gm Daily, Flagyl 500 mg Q6 -Protonix 40 mg IV Daily Eosinophilia/Thrombocytopenia -Blood and stool parasites pending -HCV Ab pending Possible BPH -Pt reports decreased stream and increased urinary frequency recently -PSA pending -Could likely benefit from urology follow up as an outpatient DVT Prophylaxis -Lovenox 40 mg SQ Daily FEN -Fluids: D5LR @ 100 cc/hr -Electrolytes: No electrolyte abnormalities, BMP in AM -Nutrition: Clear liquid diet, advance as tolerated Disposition Med/Surg Visit type - Emergency Visit Emergency Visit: Yes ED Registration Date: 05/30/18 Care time: The patient presented to the Emergency Department on the above date and was hospitalized for further evaluation of their emergent condition. - New Patient This patient is new to me today: Yes Date on this admission: 05/30/18 - Critical Care Critical Care patient: No
--- NOTE | 2018-05-30 14:34 | CONSULT ---
- Consultation REQUESTING PROVIDER: CONSULT REQUEST: We have been asked to surgically evaluate this patient for abdominal pain/possible sbo PCP:Tera Gaona MD HISTORY OF PRESENT ILLNESS: 42M presented to the ED with complaint of abd pain with nausea and vomiting. Pt states that he was seen in the hospital last week for similar issues and was sent home with follow up with his PCP. Pt states that he can not tolerate eating as he will vomit about 1 hour after. Pt denies any fever, chills, n/v. Pt no history of abd surgery. Pt states that he had a BM yesterday and is passing flatus. PMHx: denies PSHx: denies Home Medications Medication Instructions Recorded Omeprazole 20 mg PO DAILY 05/30/18 Allergies Allergy/AdvReac Type Severity Reaction Status Date / Time No Known Allergies Allergy Verified 05/29/18 18:54 PHYSICAL EXAM: GENERAL: Awake, alert, and fully oriented, in no acute distress. HEAD: Normal with no signs of trauma. EYES: PERRL, sclera anicteric, conjunctiva clear. NECK: Normal ROM, supple without lymphadenopathy, JVD, or masses. LUNGS: Clear to auscultation bilat anteriorly. HEART: Regular rate and rhythm. No murmurs ABDOMEN: Soft, mild diffuse tenderness, not distended, normoactive bowel sounds , no guarding, no rebound, no masses. No organomegaly. MUSCULOSKELETAL: Normal ROM at all joints. No bony deformities or tenderness. No CVA tenderness. NEUROLOGICAL: Normal speech, gait not observed. PSYCH: Cooperative. Good eye contact. Appropriate mood and affect. SKIN: Warm, dry, normal turgor, no rashes or lesions noted. Vital Signs Temperature 97.7 F 05/30/18 11:00 Pulse Rate 72 05/30/18 11:00 Respiratory Rate 18 05/30/18 11:00 Blood Pressure 110/57 L 05/30/18 11:00 O2 Sat by Pulse Oximetry (%) 97 05/30/18 06:58 Lab Results WBC 4.4 K/mm3 (4.0-10.0) 05/30/18 06:00 RBC 5.46 M/mm3 (4.00-5.60) 05/30/18 06:00 Hgb 15.5 GM/dL (11.7-16.9) 05/30/18 06:00 Hct 45.3 % (35.4-49) 05/30/18 06:00 MCV 82.9 fl (80-96) 05/30/18 06:00 MCHC 34.1 g/dl (32.0-35.9) 05/30/18 06:00 RDW 13.7 % (11.9-15.9) 05/30/18 06:00 Plt Count 99 K/MM3 (134-434) L 05/30/18 06:00 Sodium 141 mmol/L (136-145) 05/30/18 06:00 Potassium 3.5 mmol/L (3.5-5.1) 05/30/18 06:00 Chloride 106 mmol/L (98-107) 05/30/18 06:00 Carbon Dioxide 28 mmol/L (21-32) 05/30/18 06:00 Anion Gap 7 MMOL/L (8-16) L 05/30/18 06:00 BUN 15 mg/dL (7-18) 05/30/18 06:00 Creatinine 1.1 mg/dL (0.55-1.3) 05/30/18 06:00 Random Glucose 76 mg/dL (74-106) 05/30/18 06:00 Calcium 8.5 mg/dL (8.5-10.1) 05/30/18 06:00 Abd x-ray: questionable SBO Diagnosis: Abd pain Plan: - Pt does not show any clinical signs of sbo at this time, no need for surgical intervention. - follow up with GI - clear liquids adv as tolerated. -please contact surgery team if any changes Visit type - Case Type Case Type: ED Admission - Emergency Emergency Visit: Yes ED Registration Date: 05/29/18 Care time: The patient presented to the Emergency Department on the above date and was hospitalized for further evaluation of their emergent condition. - New patient This patient is new to me today: Yes Date on this admission: 05/30/18
--- NOTE | 2018-05-30 14:39 | PN ---
Teaching Attending Note Name of Resident: Norman Tellez ATTENDING PHYSICIAN STATEMENT I saw and evaluated the patient. I reviewed the resident's note and discussed the case with the resident. I agree with the resident's findings and plan as documented with exceptions below. SUBJECTIVE: Patient seen and examined. Denies any nausea/vomiting. Improved abdominal pain. No new fevers, overall feels better. OBJECTIVE: Vital Signs Period Temp Pulse Resp BP Sys/Goodman Pulse Ox Last 24 Hr 97.7 F-98.2 F 68-77 16-18 102-147/53-97 97-97 Intake & Output 05/27/18 05/28/18 05/29/18 05/30/18 23:59 23:59 23:59 23:59 Weight 220 lb General: lying in bed in no acute distress Chest: CTAB, no rales or wheezing Abdomen;Soft, tenderness in kalina-umbilical region, no voluntary or involuntary guarding or rigidity, positive bowel sounds Extremities: no edema Home Medications Medication Instructions Recorded Omeprazole 20 mg PO DAILY 05/30/18 Active Medications Enoxaparin Sodium (Lovenox -) 40 mg SQ DAILY [facility] Last Admin: 05/30/18 11:42 Dose: 40 mg Metronidazole (Flagyl 500mg Premixed Ivpb -) 500 mg in 100 mls @ 100 mls/hr IVPB Q6H-IV [facility] Last Admin: 05/30/18 09:25 Dose: 100 mls/hr Ceftriaxone Sodium 1 gm/ (Dextrose) 50 mls @ 100 mls/hr IVPB DAILY [facility]; Protocol Last Admin: 05/30/18 11:43 Dose: 100 mls/hr Dextrose/Lactated Ringer's (D5-Lr -) 1,000 mls @ 100 mls/hr IV ASDIR [facility] Last Admin: 05/30/18 09:24 Dose: 100 mls/hr Ondansetron HCl (Zofran Injection) 4 mg IVPUSH Q6H PRN PRN Reason: NAUSEA Pantoprazole Sodium (Protonix Iv) 40 mg IVPUSH DAILY [facility] Last Admin: 05/30/18 11:43 Dose: 40 mg Laboratory Results - last 24 hr 05/29/18 05/29/18 05/29/18 19:56 19:56 22:00 WBC 5.5 RBC 5.91 H Hgb 16.8 Hct 48.7 MCV 82.3 MCH 28.3 MCHC 34.4 RDW 13.5 Plt Count 120 L MPV 12.0 H Absolute Neuts (auto) 3.7 Neutrophils % 68.5 Lymphocytes % 18.3 Monocytes % 6.7 Eosinophils % 6.3 H Basophils % 0.2 Nucleated RBC % 0 Sodium 138 Potassium 3.9 Chloride 103 Carbon Dioxide 31 Anion Gap 5 L BUN 16 Creatinine 1.2 Creat Clearance w eGFR > 60 Random Glucose 106 Calcium 9.1 Phosphorus Magnesium Total Bilirubin 0.7 AST 39 H ALT 39 Alkaline Phosphatase 71 C-Reactive Protein Total Protein 8.0 Albumin 4.2 Lipase 124 Stool Occult Blood Negative Opiates Screen Methadone Screen Barbiturate Screen Phencyclidine Screen Ur Amphetamines Screen MDMA (Ecstasy) Screen Benzodiazepines Screen Cocaine Screen U Marijuana (THC) Screen 05/30/18 05/30/18 05/30/18 06:00 06:00 11:11 WBC 4.4 RBC 5.46 Hgb 15.5 Hct 45.3 MCV 82.9 MCH 28.3 MCHC 34.1 RDW 13.7 Plt Count 99 L MPV 11.8 H Absolute Neuts (auto) 2.3 Neutrophils % 51.9 D Lymphocytes % 30.4 D Monocytes % 9.4 Eosinophils % 8.0 H Basophils % 0.3 Nucleated RBC % 0 Sodium 141 Potassium 3.5 Chloride 106 Carbon Dioxide 28 Anion Gap 7 L BUN 15 Creatinine 1.1 Creat Clearance w eGFR > 60 Random Glucose 76 Calcium 8.5 Phosphorus 3.2 Magnesium 2.5 H Total Bilirubin 0.9 AST 26 ALT 32 Alkaline Phosphatase 55 C-Reactive Protein Total Protein 6.4 Albumin 3.3 L Lipase Stool Occult Blood Opiates Screen Negative Methadone Screen Negative Barbiturate Screen Negative Phencyclidine Screen Negative Ur Amphetamines Screen Negative MDMA (Ecstasy) Screen Negative Benzodiazepines Screen Negative Cocaine Screen Negative U Marijuana (THC) Screen Negative 05/30/18 12:25 WBC RBC Hgb Hct MCV MCH MCHC RDW Plt Count MPV Absolute Neuts (auto) Neutrophils % Lymphocytes % Monocytes % Eosinophils % Basophils % Nucleated RBC % Sodium Potassium Chloride Carbon Dioxide Anion Gap BUN Creatinine Creat Clearance w eGFR Random Glucose Calcium Phosphorus Magnesium Total Bilirubin AST ALT Alkaline Phosphatase C-Reactive Protein < 0.3 Total Protein Albumin Lipase Stool Occult Blood Opiates Screen Methadone Screen Barbiturate Screen Phencyclidine Screen Ur Amphetamines Screen MDMA (Ecstasy) Screen Benzodiazepines Screen Cocaine Screen U Marijuana (THC) Screen EKG NSR, normal QTc ASSESSMENT AND PLAN: 42 yom with no significant PMHx, moved from [facility] 1 year ago admitted with nausea, vomiting. -Nausea/vomiting/abdominal pain, ?colitis, vs SBO(low suspicion) vs gastroenteritis, r/o parastitic illness -Thrombocytopenia, ?etiology -Eosniophilia Plan: GI/Surgery input noted. Symptoms improved. patient with good bowel sounds and normal BM making SBO less likely. Ceftriaxone/flagyl day 2. Advance to clears. IVF D5-LR till po improved Unclear etiology for thrombocytopenia/eosinophilia. ID input. Check stool ova/parasites. Hematology input. Check Hep panel. DVTPPx with lovenox with monitoring. Dispo pending clinical improvement. Plan discussed with patient and at bedside in detail, all questions answered.
--- NOTE | 2018-05-30 16:19 | CON.ID ---
Consult Consult Specialty:: infectious diseases Reason for Consultation:: sbo,eosinophilia - History of Present Illness Chief Complaint: abd pain History of Present Illness: 42 yo M with no significant PMH who came to the hospital for abd pain .patient had recently paind a visit to the er for the same problem and ct done showed iletitis vs colitis and patient was [facility] the [facility] came to the er because of worsening abd pain patient has recently about a year back immigrated from [facility] Denies fever or chills. He has been in [place] within the past 1 year. patient was started on ceftriaxone and flagyl and patient currently feels much better - History Source History Provided By: Patient Limitations to Obtaining History: No Limitations - Alcohol/Substance Use Hx Alcohol Use: No - Smoking History Smoking history: Never smoked Home Medications - Allergies Allergies/Adverse Reactions: Allergies Allergy/AdvReac Type Severity Reaction Status Date / Time No Known Allergies Allergy Verified 05/29/18 18:54 - Home Medications Home Medications: Ambulatory Orders Omeprazole 20 mg PO DAILY 05/30/18 Review of Systems - Review of Systems Constitutional: reports: No Symptoms Eyes: reports: No Symptoms HENT: reports: No Symptoms Neck: reports: No Symptoms Cardiovascular: reports: No Symptoms Respiratory: reports: No Symptoms Gastrointestinal: reports: Abdominal Pain Genitourinary: reports: No Symptoms Musculoskeletal: reports: No Symptoms Integumentary: reports: No Symptoms Neurological: reports: No Symptoms Endocrine: reports: No Symptoms Hematology/Lymphatic: reports: No Symptoms Psychiatric: reports: No Symptoms Physical Exam Vital Signs: Vital Signs Temperature 97.7 F 05/30/18 11:00 Pulse Rate 72 05/30/18 11:00 Respiratory Rate 18 05/30/18 11:00 Blood Pressure 110/57 L 05/30/18 11:00 O2 Sat by Pulse Oximetry (%) 97 05/30/18 06:58 Constitutional: Yes: Well Nourished, No Distress, Calm Eyes: Yes: Conjunctiva Clear Cardiovascular: Yes: Regular Rate and Rhythm Respiratory: Yes: Regular, CTA Bilaterally Gastrointestinal: Yes: Soft, Hypoactive Bowel Sounds Musculoskeletal: Yes: WNL Extremities: Yes: WNL Neurological: Yes: Alert, Oriented Psychiatric: Yes: Alert, Oriented Labs: CBC, BMP 05/30/18 06:00 05/30/18 06:00 Imaging - Results Chest X-ray: Report Reviewed, Image Reviewed Assessment/Plan 42 yo M with no significant PMH who p/w epigastric pain and vomiting worse w/ food x5d. CT showed ileus vs ileitis vs colitis Colitis/Ileitis ? eosinophilia and thrombocytopenia - BPH plan continue current mgmt pls send stool for ova and parasite monitor bowel movement rest as per the team
--- NOTE | 2018-05-30 18:49 | CONSULT ---
Consult Consult Specialty:: hematology-Oncology Referred by:: Dr. Gaona Reason for Consultation:: erythocytopenia - History of Present Illness Chief Complaint: abdominal pain, vomiting History of Present Illness: 42 yr old man with no significant phmx presents with abdominal pain, cough, heart burn and nonbloody vomiting for past few days admitted for Colitis vs Ileitis. Found to have eosinophilia and thrombocytopenia. pt denies fevers, chest pain, recent travel or unusual foods. pt was born in [facility] and has been in the [place] since 02[place]08/2017 - History Source History Provided By: Patient Limitations to Obtaining History: No Limitations - Alcohol/Substance Use Hx Alcohol Use: No - Smoking History Smoking history: Never smoked Home Medications - Allergies Allergies/Adverse Reactions: Allergies Allergy/AdvReac Type Severity Reaction Status Date / Time No Known Allergies Allergy Verified 05/29/18 18:54 - Home Medications Home Medications: Ambulatory Orders Omeprazole 20 mg PO DAILY 05/30/18 Family Disease History - Family Disease History Family Disease History: Respiratory: Father (asthma), Other: Mother (stroke age 75) Physical Exam Vital Signs: Vital Signs Temperature 97.6 F 05/30/18 18:22 Pulse Rate 66 05/30/18 18:22 Respiratory Rate 18 05/30/18 18:22 Blood Pressure 135/57 L 05/30/18 18:22 O2 Sat by Pulse Oximetry (%) 97 05/30/18 06:58 Labs: CBC, BMP 05/30/18 06:00 05/30/18 06:00 Assessment/Plan 42 yr old man with no sig PMHX presents with abdominal pain found to have thrombocytopenia and eosinophilia. Problem List: Ileitis vs colitis as cause of abdominal pain, currently undergoing w/u isolated thrombocytopenia, normal wbc/hgb eosinophilia A/P: r/o infectious cause of lab abnormalities, pt consented to HIV testing, r/o parasitic or bacterial infection, studies pending. consider viral etiologies as well r/o autoimmune destruction platelet, check TANIYA screen abdominal ct with unremarable spleen(unlikely to be spleenic sequestration) if above are negative, pt likely with ITP trend platelet count
--- NOTE | 2018-05-30 21:03 | PN ---
Teaching Attending Note Name of Resident: Ibrahima Huber ATTENDING PHYSICIAN STATEMENT I saw and evaluated the patient. I reviewed the resident's note and discussed the case with the resident. I agree with the resident's findings and plan as documented. ASSESSMENT AND PLAN: 42 yr old man with no sig PMHX presents with abdominal pain of 2-3 days duration. Epigastric pain. Also with found to be vomiting HAs thrombocytopenia and eosinophilia. Problem List: Enterocolitis thrombocytopenia eosinophilia A/P: Thrombocytopenia --isolated nl WBC/Hgb elevated MPV Check HIV/TANIYA ? ITP CT scan showed unremarkable/liver spleen eosinophilia --? a;llergic ? parasitic check stool oa nd P Enterocolitis--? viral
[2018-05-30 23:44] VITALS: BMI 33.3
[2018-05-31] MEDS: DEXTROSE 5%-LACTATED RINGERS 1,000 ML IV SCH (06:25)
[2018-05-31] MEDS: DEXTROSE 5%-WATER - 1,000 ML IV SCH (06:53)
[2018-05-31 08:33] LABS: BASO % 0.5 % (0-2.0); EOS % 8.9 % (0-4.5); HEMATOCRIT 46.2 % (35.4-49); HEMOGLOBIN 14.9 GM/dL (11.7-16.9); LYMPH % 32.8 % (8-40); MCH 26.9 pg (25.7-33.7); MCHC 32.3 g/dl (32.0-35.9); MEAN CELL VOLUME 83.3 fl (80-96); MEAN PLT VOLUME 11.4 fl (7.5-11.1); MONO % 9.5 % (3.8-10.2); NEUT % 48.3 % (42.8-82.8); PLATELET COUNT 80 K/MM3 (134-434); RBC 5.54 M/mm3 (4.00-5.60); RDW 13.5 % (11.9-15.9); WHITE BLOOD COUNT 2.9 K/mm3 (4.0-10.0)
[2018-05-31 09:04] LABS: ALBUMIN 3.1 g/dl (3.4-5.0); ALK PHOS 59 U/L (45-117); ANION GAP 6 MMOL/L (8-16); BILIRUBIN,TOTAL 0.9 mg/dL (0.2-1); BLOOD UREA NITROGEN 11 mg/dL (7-18); CALCIUM 8.2 mg/dL (8.5-10.1); CHLORIDE 106 mmol/L (98-107); CO2 28 mmol/L (21-32); CREATININE 1.2 mg/dL (0.55-1.3); GLUCOSE,RANDOM 83 mg/dL (74-106); MAGNESIUM 2.2 mg/dL (1.8-2.4); PHOSPHOROUS 2.8 mg/dL (2.5-4.9); POTASSIUM 3.6 mmol/L (3.5-5.1); SGOT/AST 27 U/L (15-37); SGPT/ALT 29 U/L (13-61); SODIUM 140 mmol/L (136-145); TOT PROT 6.2 g/dl (6.4-8.2)
--- NOTE | 2018-05-31 09:17 | PN ---
Physical Exam: SUBJECTIVE: Patient seen and examined this AM. He states that he is feeling much better with minimal pain and states he is tolerating the clear liquids well and is requesting food. OBJECTIVE: Vital Signs Period Temp Pulse Resp BP Sys/Goodman Pulse Ox Last 24 Hr 97.5 F-97.9 F 60-72 16-20 102-135/53-74 97-97 GENERAL: A&O, no acute distress HEAD: Normocephalic, atraumatic. EYES: PERRL, no scleral icterus EARS, NOSE, THROAT: oropharynx clear without exudates. Moist mucous membranes. NECK: supple without lymphadenopathy LUNGS: CTA b/l, no crackles or wheezes HEART: Regular rate and rhythm, normal S1 and S2 without murmur ABDOMEN: Soft, some tenderness to palpation diffusely, normoactive bowel sounds MUSCULOSKELETAL: No bony deformities or tenderness. EXTREMITIES: 2+ pulses, warm, well-perfused. No peripheral edema. NEUROLOGICAL: Cranial nerves II-XII grossly intact. Normal speech. PSYCHIATRIC: Cooperative. Good eye contact. Appropriate mood and affect. SKIN: Warm, dry, no rashes or lesions noted Laboratory Results - last 24 hr 05/30/18 05/30/18 05/30/18 06:00 11:11 12:25 WBC RBC Hgb Hct MCV MCH MCHC RDW Plt Count MPV Absolute Neuts (auto) Neutrophils % Lymphocytes % Monocytes % Eosinophils % Basophils % Nucleated RBC % Sodium Potassium Chloride Carbon Dioxide Anion Gap BUN Creatinine Creat Clearance w eGFR Random Glucose Calcium Phosphorus Magnesium Total Bilirubin AST ALT Alkaline Phosphatase C-Reactive Protein < 0.3 Total Protein Albumin Prostate Specific Ag 1.00 Opiates Screen Negative Methadone Screen Negative Barbiturate Screen Negative Phencyclidine Screen Negative Ur Amphetamines Screen Negative MDMA (Ecstasy) Screen Negative Benzodiazepines Screen Negative Cocaine Screen Negative U Marijuana (THC) Screen Negative Hep C Ab Diagnostic 05/30/18 05/31/18 05/31/18 12:25 07:00 07:00 WBC 2.9 L RBC 5.54 Hgb 14.9 Hct 46.2 MCV 83.3 MCH 26.9 MCHC 32.3 RDW 13.5 Plt Count 80 L MPV 11.4 H Absolute Neuts (auto) 1.4 L Neutrophils % 48.3 Lymphocytes % 32.8 Monocytes % 9.5 Eosinophils % 8.9 H Basophils % 0.5 Nucleated RBC % 0 Sodium 140 Potassium 3.6 Chloride 106 Carbon Dioxide 28 Anion Gap 6 L BUN 11 Creatinine 1.2 Creat Clearance w eGFR > 60 Random Glucose 83 Calcium 8.2 L Phosphorus 2.8 Magnesium 2.2 Total Bilirubin 0.9 AST 27 ALT 29 Alkaline Phosphatase 59 C-Reactive Protein Total Protein 6.2 L Albumin 3.1 L Prostate Specific Ag Opiates Screen Methadone Screen Barbiturate Screen Phencyclidine Screen Ur Amphetamines Screen MDMA (Ecstasy) Screen Benzodiazepines Screen Cocaine Screen U Marijuana (THC) Screen Hep C Ab Diagnostic <0.1 Active Medications Generic Name Dose Route Start Last Admin Trade Name Freq PRN Reason Stop Dose Admin Enoxaparin Sodium 40 mg 05/30/18 10:00 05/30/18 11:42 Lovenox - SQ 40 mg DAILY [facility] Administration Metronidazole 500 mg in 100 mls @ 100 mls/hr 05/30/18 03:00 05/31/18 02:53 Flagyl 500mg Premixed Ivpb - IVPB 100 mls/hr Q6H-IV [facility] Administration Ceftriaxone Sodium 1 gm/ 50 mls @ 100 mls/hr 05/30/18 10:00 05/30/18 11:43 Dextrose IVPB 100 mls/hr DAILY [facility] Administration Protocol Dextrose 1,000 mls @ 100 mls/hr 05/31/18 06:45 05/31/18 06:53 D5w - IV 100 mls/hr ASDIR [facility] Administration Ondansetron HCl 4 mg 05/30/18 01:38 Zofran Injection IVPUSH Q6H PRN NAUSEA Pantoprazole Sodium 40 mg 05/30/18 10:00 05/30/18 11:43 Protonix Iv IVPUSH 40 mg DAILY [facility] Administration ASSESSMENT/PLAN: 42 yo M with no significant PMH who p/w epigastric pain and vomiting worse w/ food x5d. CT showed ileus vs ileitis vs colitis. Abdominal pain/nausea/vomiting -improved, though not resolved -KUB noted with possible obstruction, though pt is not clinically obstructed, repeat KUB with similar appearance -GI Consult appreciated -Surgical consult noted, not a surgical candidate at this time -ID Consult appreciated, continue current management -Rocephin 1 gm Daily, Flagyl 500 mg Q6 Day 3 -Protonix 40 mg IV Daily -CT previously performed without PO Contrast, will repeat study with PO contrast for further workup. -Pt reports one normal bowel movement this AM, first since arrival to ED 2 days ago Eosinophilia/Thrombocytopenia/Leukopenia -Blood and stool parasites pending -HCV Ab pending -HIV Negative -TANIYA, Lupus AC Ab, Hep Panel pending Possible BPH -Pt reports decreased stream and increased urinary frequency recently -PSA pending -Could likely benefit from urology follow up as an outpatient DVT Prophylaxis -Lovenox 40 mg SQ Daily FEN -Fluids: D5LR @ 100 cc/hr -Electrolytes: No electrolyte abnormalities, BMP in AM -Nutrition: Clear liquid diet, advance as tolerated Disposition Med/Surg Visit type - Emergency Visit Emergency Visit: Yes ED Registration Date: 05/30/18 Care time: The patient presented to the Emergency Department on the above date and was hospitalized for further evaluation of their emergent condition. - New Patient This patient is new to me today: No - Critical Care Critical Care patient: No
[2018-05-31] MEDS ORDERED: cefTRIAXone SODIUM 1 GM VIAL ONE (09:20)
[2018-05-31] MEDS: CEFTRIAXONE 1 GM in DEXTROSE 5%-WATER - 50 ML IVPB SCH (09:25)
[2018-05-31] MEDS: PANTOPRAZOLE SODIUM 40 MG VIAL IVPUSH SCH (09:26)
[2018-05-31] MEDS: ENOXAPARIN NA (PORCINE) 40 MG/0.4 ML DISP.SYRIN SQ SCH (09:26)
--- NOTE | 2018-05-31 12:14 | PN ---
Teaching Attending Note Name of Resident: Norman Tellez ATTENDING PHYSICIAN STATEMENT I saw and evaluated the patient. I reviewed the resident's note and discussed the case with the resident. I agree with the resident's findings and plan as documented with exceptions below. SUBJECTIVE: Patient seen and examined. No nausea, vomiting, no BM inhouse. Passing gas, no new fevers/chills or concerns. OBJECTIVE: Vital Signs Period Temp Pulse Resp BP Sys/Goodman Pulse Ox Last 24 Hr 97.5 F-97.9 F 60-70 16-20 102-135/53-74 97-97 Intake & Output 05/28/18 05/29/18 05/30/18 05/31/18 23:59 23:59 23:59 23:59 Intake Total 950 500 Output Total 600 300 Balance 350 200 Weight 220 lb 219 lb 6 oz General: lying in bed in no acute distress Chest: CTAB, no rales or wheezing abdomen:Soft, kalina-umbilical tenderness but improved, no voluntary or involuntary guarding or rigidity, decreased bowel sounds Extremities: no edema Active Medications Enoxaparin Sodium (Lovenox -) 40 mg SQ DAILY [facility] Last Admin: 05/31/18 09:26 Dose: 40 mg Metronidazole (Flagyl 500mg Premixed Ivpb -) 500 mg in 100 mls @ 100 mls/hr IVPB Q6H-IV [facility] Last Admin: 05/31/18 09:26 Dose: 100 mls/hr Ceftriaxone Sodium 1 gm/ (Dextrose) 50 mls @ 100 mls/hr IVPB DAILY [facility]; Protocol Last Admin: 05/31/18 09:25 Dose: 100 mls/hr Dextrose (D5w -) 1,000 mls @ 100 mls/hr IV ASDIR [facility] Last Admin: 05/31/18 06:53 Dose: 100 mls/hr Ondansetron HCl (Zofran Injection) 4 mg IVPUSH Q6H PRN PRN Reason: NAUSEA Pantoprazole Sodium (Protonix Iv) 40 mg IVPUSH DAILY [facility] Last Admin: 05/31/18 09:26 Dose: 40 mg Abnormal Lab Results 05/31/18 05/31/18 07:00 07:00 WBC 2.9 L Plt Count 80 L MPV 11.4 H Absolute Neuts (auto) 1.4 L Eosinophils % 8.9 H Anion Gap 6 L Calcium 8.2 L Total Protein 6.2 L Albumin 3.1 L Abdominal xray 05/30 images and results reviewed ASSESSMENT AND PLAN: 42 yom with no significant PMHx, moved from [facility] 1 year ago admitted with nausea, vomiting. -Nausea/vomiting/abdominal pain, ?colitis, vs SBO(low suspicion) vs gastroenteritis, r/o parastitic illness -Thrombocytopenia, ?etiology -Eosniophilia Plan: GI/Surgery input noted. No BM yet, decreased bowel sounds CT A/P with oral contrast. Ceftriaxone/flagyl day 3. Advance diet per clinical course and above imaging. IVF D5-LR till po improved Unclear etiology for thrombocytopenia/eosinophilia. ID input. Check stool ova/parasites. Hematology input appreciated. Follow up Hep panel. DVTPPx with lovenox with monitoring. Dispo pending clinical improvement. Plan discussed with patient and nursing in detail, all questions answered.
--- NOTE | 2018-05-31 13:16 | PN ---
GI Progress Note Subjective: clinically improved, no nausea, no vomiting, no abdominal pain, FUA reviewed-- air fluid levels resolved, doubt SBO at this time - Objective Vital Signs: Vital Signs Temperature 97.5 F L 05/31/18 08:49 Pulse Rate 60 05/31/18 08:49 Respiratory Rate 16 05/31/18 08:49 Blood Pressure 102/54 L 05/31/18 08:49 O2 Sat by Pulse Oximetry (%) 97 05/31/18 08:51 Constitutional: Well Nourished Eyes: Yes: Conjunctiva Clear HENT: Yes: Atraumatic Neck: Yes: Supple Cardiovascular: Yes: Regular Rate and Rhythm Respiratory: Yes: CTA Bilaterally Gastrointestinal Inspection: No: Distention ...Auscultate: Yes: Normoactive Bowel Sounds ...Palpate: Yes: Soft. No: Firm/Rigid, Guarding, Hepatomegaly, Mass, Pulsatile Mass, Splenomegaly, Tenderness ...Percussion: Yes: Tympanitic Labs: CBC, BMP 05/31/18 07:00 05/31/18 07:00 Problem List - Problems (1) Ileus Assessment/Plan: --resolved R> low reside lactose free diet doubt SBO [place] [facility] Code(s): K56.7 - ILEUS, UNSPECIFIED
[2018-05-31] MEDS: PANTOPRAZOLE 40 MG TABLET (FP) PO SCH (13:44)
[2018-05-31] MEDS: METOCLOPRAMIDE HCL 10 MG TABLET (FP) PO SCH (16:35)
--- NOTE | 2018-05-31 17:25 | PN ---
Progress Note, Physician History of Present Illness: Pt seen and examined. Events noted. He states he is feeling better, less abdominal pain. No n/v episodes and had a normal BM. - Current Medication List Current Medications: Active Medications Enoxaparin Sodium (Lovenox -) 40 mg SQ DAILY [facility] Last Admin: 05/31/18 09:26 Dose: 40 mg Metronidazole (Flagyl 500mg Premixed Ivpb -) 500 mg in 100 mls @ 100 mls/hr IVPB Q6H-IV [facility] Last Admin: 05/31/18 14:26 Dose: 100 mls/hr Ceftriaxone Sodium 1 gm/ (Dextrose) 50 mls @ 100 mls/hr IVPB DAILY [facility]; Protocol Last Admin: 05/31/18 09:25 Dose: 100 mls/hr Dextrose (D5w -) 1,000 mls @ 100 mls/hr IV ASDIR [facility] Last Admin: 05/31/18 06:53 Dose: 100 mls/hr Metoclopramide HCl (Reglan -) 5 mg PO TIDAC [facility] Last Admin: 05/31/18 16:35 Dose: 5 mg Ondansetron HCl (Zofran Injection) 4 mg IVPUSH Q6H PRN PRN Reason: NAUSEA Last Admin: 05/31/18 12:45 Dose: 4 mg Pantoprazole Sodium (Protonix -) 40 mg PO DAILY [facility] Last Admin: 05/31/18 13:44 Dose: Not Given - Objective Vital Signs: Vital Signs Temperature 97.6 F 05/31/18 14:11 Pulse Rate 76 05/31/18 14:11 Respiratory Rate 16 05/31/18 08:49 Blood Pressure 111/75 05/31/18 14:11 O2 Sat by Pulse Oximetry (%) 97 05/31/18 08:51 Constitutional: Yes: No Distress, Calm Cardiovascular: Yes: Regular Rate and Rhythm Respiratory: Yes: Regular Gastrointestinal: Yes: Normal Bowel Sounds, Soft, Tenderness (minimal, generalized with deep palpation) Genitourinary: Yes: WNL Extremities: Yes: WNL Neurological: Yes: Alert, Oriented Labs: CBC, BMP 05/31/18 07:00 05/31/18 07:00 - ....Imaging Cat Scan: Report Reviewed Problem List - Problems (1) Abdominal pain Code(s): R10.9 - UNSPECIFIED ABDOMINAL PAIN Qualifiers: Abdominal location: epigastric Qualified Code(s): R10.13 - Epigastric pain (2) Ileus Code(s): K56.7 - ILEUS, UNSPECIFIED Assessment/Plan Abdominal pain / ileus Eosinophilia Thrombocytopenia Leukopenia -- CT abd/pelvis results reviewed, no clear evidence of ileitis/colitis -- hepatitis panel pending, HIV neg -- stool O+P ordered -- continue antibiotics for now -- monitor cbc, Hematology following
[2018-05-31] MEDS ORDERED: ACETAMINOPHEN 325 MG TABLET (FP) PO PRN (22:03)
[2018-06-01 04:10] LABS: HEP.C VIRUS AB 0.2 s/co ratio (0.0-0.9)
[2018-06-01] MEDS: METOCLOPRAMIDE HCL 10 MG TABLET (FP) PO SCH ×3 (06:19→17:42)
[2018-06-01 08:32] LABS: BASO % 0.4 % (0-2.0); EOS % 8.1 % (0-4.5); HEMATOCRIT 45.9 % (35.4-49); HEMOGLOBIN 14.8 GM/dL (11.7-16.9); LYMPH % 29.3 % (8-40); MCH 26.9 pg (25.7-33.7); MCHC 32.4 g/dl (32.0-35.9); MEAN CELL VOLUME 83.2 fl (80-96); MONO % 9.2 % (3.8-10.2); PLATELET COUNT 97 K/MM3 (134-434); RBC 5.51 M/mm3 (4.00-5.60); RDW 13.6 % (11.9-15.9); WHITE BLOOD COUNT 4.2 K/mm3 (4.0-10.0)
[2018-06-01] MEDS ORDERED: DEXTROSE 5%-WATER - 50 ML IVPB ONE (10:23)
[2018-06-01] MEDS ORDERED: cefTRIAXone SODIUM 1 GM VIAL ONE (10:23)
[2018-06-01] MEDS: CEFTRIAXONE 1 GM in DEXTROSE 5%-WATER - 50 ML IVPB SCH (10:27)
[2018-06-01] MEDS: PANTOPRAZOLE 40 MG TABLET (FP) PO SCH (10:27)
[2018-06-01] MEDS: ENOXAPARIN NA (PORCINE) 40 MG/0.4 ML DISP.SYRIN SQ SCH (10:27)
[2018-06-01] MEDS: DEXTROSE 5%-WATER - 1,000 ML IV SCH ×2 (10:27→21:32)
--- NOTE | 2018-06-01 13:34 | PN ---
Progress Note (short form) - Note Progress Note: Attending Surgeon Tolerating diet and passing flatus h/e c/o epigastric burning VSS AF abdo-soft; non tender and non tympanitic; reducible RIH and ? LIH imaging reviewed IMP: no evidence of bowel obstruction; BIH's PLAN: Outpatient f/u w/me for elective inguinal hernia repair; a/a/u by the patient. Jae German MD FACS
--- NOTE | 2018-06-01 13:51 | PN ---
Progress Note, Physician History of Present Illness: Pt had epigastric burning and generalized abdominal pain last night with episode of vomiting. Had breakfast today, no vomiting as of yet. Remains afebrile. - Current Medication List Current Medications: Active Medications Acetaminophen (Tylenol -) 650 mg PO Q4H PRN PRN Reason: PAIN LEVEL 1-5 Last Admin: 05/31/18 22:44 Dose: 650 mg Enoxaparin Sodium (Lovenox -) 40 mg SQ DAILY [facility] Last Admin: 06/01/18 10:27 Dose: 40 mg Metronidazole (Flagyl 500mg Premixed Ivpb -) 500 mg in 100 mls @ 100 mls/hr IVPB Q6H-IV [facility] Last Admin: 06/01/18 08:44 Dose: 100 mls/hr Ceftriaxone Sodium 1 gm/ (Dextrose) 50 mls @ 100 mls/hr IVPB DAILY [facility]; Protocol Last Admin: 06/01/18 10:27 Dose: 100 mls/hr Dextrose (D5w -) 1,000 mls @ 100 mls/hr IV ASDIR [facility] Last Admin: 06/01/18 10:27 Dose: 100 mls/hr Metoclopramide HCl (Reglan -) 5 mg PO TIDAC [facility] Last Admin: 06/01/18 10:27 Dose: 5 mg Ondansetron HCl (Zofran Injection) 4 mg IVPUSH Q6H PRN PRN Reason: NAUSEA Last Admin: 05/31/18 12:45 Dose: 4 mg Pantoprazole Sodium (Protonix -) 40 mg PO DAILY [facility] Last Admin: 06/01/18 10:27 Dose: 40 mg - Objective Vital Signs: Vital Signs Temperature 97.4 F L 06/01/18 06:54 Pulse Rate 65 06/01/18 06:54 Respiratory Rate 20 06/01/18 09:00 Blood Pressure 119/65 06/01/18 06:54 O2 Sat by Pulse Oximetry (%) 97 06/01/18 09:00 Constitutional: Yes: No Distress, Calm Cardiovascular: Yes: Regular Rate and Rhythm Respiratory: Yes: Regular Gastrointestinal: Yes: Normal Bowel Sounds, Soft Genitourinary: Yes: WNL Extremities: Yes: WNL Integumentary: Yes: WNL Neurological: Yes: Alert, Oriented Labs: CBC, BMP 06/01/18 08:00 05/31/18 07:00 Problem List - Problems (1) Abdominal pain Code(s): R10.9 - UNSPECIFIED ABDOMINAL PAIN Qualifiers: Abdominal location: epigastric Qualified Code(s): R10.13 - Epigastric pain (2) Ileus Code(s): K56.7 - ILEUS, UNSPECIFIED Assessment/Plan Abdominal pain - ? gastritis Eosinophilia - r/o parasitic infection Thrombocytopenia Leukopenia - resolved -- CT abd/pelvis results reviewed, no clear evidence of ileitis/colitis -- stool O+P ordered, strongyloides serology -- will consider d/c antibiotics -- monitor cbc, Hematology following
--- NOTE | 2018-06-01 15:10 | PN ---
Physical Exam: SUBJECTIVE: Patient seen and examined, tried PO last evening with recurrence of nausea and generalized abdominal pain. Just had PO intake this AM, no symptoms so far. No fevers/chills. One episode of loose stools overnight that he attributes to contrast ingestion. OBJECTIVE: Vital Signs Period Temp Pulse Resp BP Sys/Goodman Pulse Ox Last 24 Hr 97.4 F-98.1 F 64-88 20-20 112-120/60-74 97 GENERAL: The patient is awake, alert, and fully oriented, in no acute distress. HEAD: Normal with no signs of trauma. EYES: PERRL, extraocular movements intact, sclera anicteric, conjunctiva clear. No ptosis. ENT: Ears normal, nares patent, oropharynx clear without exudates, moist mucous membranes. NECK: Trachea midline, full range of motion, supple. LUNGS: Breath sounds equal, clear to auscultation bilaterally, no wheezes, no crackles, no accessory muscle use. HEART: Regular rate and rhythm, S1, S2 ABDOMEN: Soft, mild kalina-umbilical tenderness, non distended, no voluntary or involuntary guarding or rigidty, positive bowel sounds EXTREMITIES: 2+ pulses, warm, well-perfused, no edema. NEUROLOGICAL: Cranial nerves II through XII grossly intact. Normal speech, gait not observed. PSYCH: Normal mood, normal affect. SKIN: Warm, dry, normal turgor, no rashes or lesions noted Laboratory Results - last 24 hr 05/30/18 06/01/18 11:00 08:00 WBC 4.2 RBC 5.51 Hgb 14.8 Hct 45.9 MCV 83.2 MCH 26.9 MCHC 32.4 RDW 13.6 Plt Count 97 L D MPV 12.0 H Absolute Neuts (auto) 2.2 Neutrophils % 53.0 Lymphocytes % 29.3 Monocytes % 9.2 Eosinophils % 8.1 H Basophils % 0.4 Nucleated RBC % 0 Hepatitis A IgM Ab Negative Hep Bs Antigen Negative Hep B Core IgM Ab Negative Hepatitis C Antibody 0.2 Active Medications Generic Name Dose Route Start Last Admin Trade Name Freq PRN Reason Stop Dose Admin Acetaminophen 650 mg 05/31/18 22:03 05/31/18 22:44 Tylenol - PO 650 mg Q4H PRN Administration PAIN LEVEL 1-5 Enoxaparin Sodium 40 mg 05/30/18 10:00 06/01/18 10:27 Lovenox - SQ 40 mg DAILY VINCETN Administration Metronidazole 500 mg in 100 mls @ 100 mls/hr 05/30/18 03:00 06/01/18 08:44 Flagyl 500mg Premixed Ivpb - IVPB 100 mls/hr Q6H-IV VINCENT Administration Ceftriaxone Sodium 1 gm/ 50 mls @ 100 mls/hr 05/30/18 10:00 06/01/18 10:27 Dextrose IVPB 100 mls/hr DAILY VINCENT Administration Protocol Dextrose 1,000 mls @ 100 mls/hr 05/31/18 06:45 06/01/18 10:27 D5w - IV 100 mls/hr ASDIR VINCENT Administration Metoclopramide HCl 5 mg 05/31/18 16:30 06/01/18 10:27 Reglan - PO 5 mg TIDAC VINCENT Administration Ondansetron HCl 4 mg 05/30/18 01:38 05/31/18 12:45 Zofran Injection IVPUSH 4 mg Q6H PRN Administration NAUSEA Pantoprazole Sodium 40 mg 05/31/18 13:30 06/01/18 10:27 Protonix - PO 40 mg DAILY VINCENT Administration CT A/P results reviewed ASSESSMENT/PLAN: 42 yom with no significant PMHx, moved from [facility] 1 year ago admitted with nausea, vomiting. -Nausea/vomiting/abdominal pain, ?colitis, vs SBO(low suspicion) vs gastroenteritis, r/o parasitic illness -Thrombocytopenia, ?etiology -Eosniophilia Plan: GI/Surgery input noted. Recurrent symptoms last night with PO. PO as tolerated for now. If fails to tolerate, discuss with GI for possible endoscopy CT A/P for concerns. ID input noted. Ceftriaxone/flagyl day 4. D/c abx in 24 hours if no new concerns. Follow up stool O&P/strongyloides serology. Hematology input noted. HIV screen neg. Follow up hep panel. IVF till tolerating PO well DVTPPx with lovenox with monitoring. Dispo pending clinical improvement. Plan discussed with patient and nursing in detail, all questions answered. Discussed with ID. Visit type - Emergency Visit Emergency Visit: Yes ED Registration Date: 05/30/18 Care time: The patient presented to the Emergency Department on the above date and was hospitalized for further evaluation of their emergent condition. - New Patient This patient is new to me today: No - Critical Care Critical Care patient: No - Discharge Referral Referred to [facility] No
[2018-06-02] MEDS: METOCLOPRAMIDE HCL 10 MG TABLET (FP) PO SCH ×2 (06:07→10:25)
--- NOTE | 2018-06-02 08:18 | PN ---
Teaching Attending Note Name of Resident: Norman Tellez ATTENDING PHYSICIAN STATEMENT I saw and evaluated the patient. I reviewed the resident's note and discussed the case with the resident. I agree with the resident's findings and plan as documented with exceptions below. SUBJECTIVE: Patient seen and examined. tolerating diet well. no nausea, vomiting or abdominal pain. OBJECTIVE: Vital Signs Period Temp Pulse Resp BP Sys/Goodman Pulse Ox Last 24 Hr 97.8 F-98.6 F 63-88 20-20 101-120/51-70 97 Intake & Output 05/30/18 05/31/18 06/01/18 06/02/18 23:59 23:59 23:59 23:59 Intake Total 950 2075 3200 1300 Output Total 600 600 600 600 Balance 350 1475 2600 700 Weight 219 lb 6 oz General: sitting in bed in no acute distress Abdomen: soft, NT, ND, positive bowel sounds no voluntary or involuntary guarding or rigidity Active Medications Acetaminophen (Tylenol -) 650 mg PO Q4H PRN PRN Reason: PAIN LEVEL 1-5 Last Admin: 05/31/18 22:44 Dose: 650 mg Enoxaparin Sodium (Lovenox -) 40 mg SQ DAILY VINCENT Last Admin: 06/01/18 10:27 Dose: 40 mg Metronidazole (Flagyl 500mg Premixed Ivpb -) 500 mg in 100 mls @ 100 mls/hr IVPB Q6H-IV VINCENT Last Admin: 06/02/18 02:35 Dose: 100 mls/hr Ceftriaxone Sodium 1 gm/ (Dextrose) 50 mls @ 100 mls/hr IVPB DAILY VINCENT; Protocol Last Admin: 06/01/18 10:27 Dose: 100 mls/hr Dextrose (D5w -) 1,000 mls @ 100 mls/hr IV ASDIR VINCENT Last Admin: 06/01/18 21:32 Dose: 100 mls/hr Metoclopramide HCl (Reglan -) 5 mg PO TIDAC VINCENT Last Admin: 06/02/18 06:07 Dose: 5 mg Ondansetron HCl (Zofran Injection) 4 mg IVPUSH Q6H PRN PRN Reason: NAUSEA Last Admin: 05/31/18 12:45 Dose: 4 mg Pantoprazole Sodium (Protonix -) 40 mg PO DAILY VINCENT Last Admin: 06/01/18 10:27 Dose: 40 mg Laboratory Results - last 24 hr 06/01/18 08:00 WBC 4.2 RBC 5.51 Hgb 14.8 Hct 45.9 MCV 83.2 MCH 26.9 MCHC 32.4 RDW 13.6 Plt Count 97 L D MPV 12.0 H Absolute Neuts (auto) 2.2 Neutrophils % 53.0 Lymphocytes % 29.3 Monocytes % 9.2 Eosinophils % 8.1 H Basophils % 0.4 Nucleated RBC % 0 ASSESSMENT AND PLAN: 42 yom with no significant PMHx, moved from [facility] 1 year ago admitted with nausea, vomiting. -Nausea/vomiting/abdominal pain, ?colitis, vs SBO(low suspicion) vs gastroenteritis, r/o parasitic illness -Thrombocytopenia, ?etiology -Eosniophilia Plan: GI/Surgery input noted. Tolerating PO well. CT A/P non concerning. Ceftriaxone/flagyl day 5. D/c abx Follow up stool O&P/strongyloides serology. Hematology input noted. HIV/hep panel neg. d/c IVF dispo d/c home today. patient and have been discussed in detail about the current thrombocytopenia, need for outaptient CBC monitoring, hematology follow up and pending studies including Ova & parasites, stronglyloides ab screen, TANIYA screen and need for PCP follow up in 1-2 weeks to discuss results and further plan of care. Patient and relay full understanding and agree to follow up.
[2018-06-02] MEDS ORDERED: cefTRIAXone SODIUM 1 GM VIAL ONE (10:21)
[2018-06-02] MEDS ORDERED: DEXTROSE 5%-WATER - 50 ML IVPB ONE (10:21)
[2018-06-02 10:25] LABS: BASO % 0.8 % (0-2.0); EOS % 10.3 % (0-4.5); HEMATOCRIT 46.9 % (35.4-49); HEMOGLOBIN 15.1 GM/dL (11.7-16.9); MCH 26.7 pg (25.7-33.7); MCHC 32.1 g/dl (32.0-35.9); MEAN CELL VOLUME 83.1 fl (80-96); MEAN PLT VOLUME 11.1 fl (7.5-11.1); MONO % 9.2 % (3.8-10.2); NEUT % 47.7 % (42.8-82.8); PLATELET COUNT 94 K/MM3 (134-434); RBC 5.64 M/mm3 (4.00-5.60); RDW 13.4 % (11.9-15.9); WHITE BLOOD COUNT 3.5 K/mm3 (4.0-10.0)
[2018-06-02] MEDS: CEFTRIAXONE 1 GM in DEXTROSE 5%-WATER - 50 ML IVPB SCH (10:25)
[2018-06-02] MEDS: PANTOPRAZOLE 40 MG TABLET (FP) PO SCH (10:25)
[2018-06-02] MEDS: ENOXAPARIN NA (PORCINE) 40 MG/0.4 ML DISP.SYRIN SQ SCH (10:26)
[2018-06-02] MEDS: DEXTROSE 5%-WATER - 1,000 ML IV SCH (10:27)
[2018-06-02 13:10] VITALS: BP 112/63; PULSE 69; TEMP 98
--- NOTE | 2018-06-02 13:14 | DS ---
Physical Exam: SUBJECTIVE: Patient seen and examined this AM. He states that he is feeling much better and would like to return home. OBJECTIVE: Vital Signs Period Temp Pulse Resp BP Sys/Goodman Pulse Ox Last 24 Hr 97.8 F-98.6 F 63-88 20 101-120/51-70 PHYSICAL EXAM GENERAL: A&O, no acute distress HEAD: Normocephalic, atraumatic. EYES: PERRL, no scleral icterus EARS, NOSE, THROAT: oropharynx clear without exudates. Moist mucous membranes. NECK: supple without lymphadenopathy LUNGS: CTA b/l, no crackles or wheezes HEART: Regular rate and rhythm, normal S1 and S2 without murmur ABDOMEN: Soft, no tenderness to palpation, normoactive bowel sounds MUSCULOSKELETAL: No bony deformities or tenderness. EXTREMITIES: 2+ pulses, warm, well-perfused. No peripheral edema. NEUROLOGICAL: Cranial nerves II-XII grossly intact. Normal speech. PSYCHIATRIC: Cooperative. Good eye contact. Appropriate mood and affect. SKIN: Warm, dry, no rashes or lesions noted LABS Laboratory Results - last 24 hr 06/02/18 09:42 WBC 3.5 L RBC 5.64 H Hgb 15.1 Hct 46.9 MCV 83.1 MCH 26.7 MCHC 32.1 RDW 13.4 Plt Count 94 L MPV 11.1 Absolute Neuts (auto) 1.7 Neutrophils % 47.7 Lymphocytes % 32.0 Monocytes % 9.2 Eosinophils % 10.3 H Basophils % 0.8 Nucleated RBC % 0 HOSPITAL COURSE: Date of Admission:05/30/18 Date of Discharge: 06/02/18 HPI on Admission: 42 yo M with no significant PMH who p/w epigastric pain and vomiting worse w/ food x5d. The patient was seen in the ER 2 day ago for epigastric pain and vomiting and CT showed ileus vs ileitis vs colitis, but he was discharged. Abd U /S at that time was nl. Patient followed up with PCP earlier today and was prescribed medication that he has not yet picked up. Patient comes into the ER today for worsening epigastric pain, and an episode of nausea and dry heaving with slight blood. Patient also reports one normal bowel movement earlier today and is able to pass gas. Denies fever or chills. He has been in [place] within the past 1 year. work-up done at last ED visit negative troponin, no UTI, Of note, admits to dysuria, dribbling, straining to pee, was told in [place] he has enlarged prostate. Hospital Course: Pt was seen by ID who recommended continuation of Metronidazole/Rocephin. KUB imaging revealed dilated bowel loops with possible air fluid levels multiple days. A repeat CT was done this time with Oral contrast which did not reveal any signs of bowel obstruction and was for all intensive purposes, normal. The pt was seen by surgery who did not recommend any surgical intervention at this time. GI saw the patient and did not recommend any acute intervention other than continuing PPI and following up as an outpatient. Of note the patient was found to have eosinophilia and thrombocytopenia. A hep panel was negative, and stool cultures were taken in addition to further eosinophilia workup. Pt was deemed medically safe for discharge with close follow up by his primary care, GI , and Hematology for further workup of thrombocytopenia. Minutes to complete discharge: 35 Discharge Summary Reason For Visit: ILEUS/INTRACTABLE VOMITING/ABDOMINAL PAIN Current Active Problems Abdominal pain (Acute) Ileus (Acute) Intractable vomiting (Acute) Condition: Stable - Instructions Diet, Activity, Other Instructions: You were admitted to the hospital for nausea, vomiting, and abdominal pain. Imaging was done which revealed that you may have had a bowel obstruction vs inflammation in your GI tract which has now resolved. You were seen by an infection disease doctor, who recommended antibiotics, a surgeon who did not recommend any surgery, a GI specialist who did not recommend any additional management, and a Durability Engineer who recommended follow up in the office for workup of your low platelet count. At this time you are medically safe to return home. You should begin at home with a soft diet and advance it as you are able to tolerate it. You should continue taking your home meds as before you were hospitalized Follow ups: You should follow up with your primary care physician within 1 week of discharge You should follow up with the GI specialist within 2 weeks of discharge You should follow up with the Durability Engineer within 2 weeks of discharge from the hospital for further evaluation of your low platelet count FOLLOW UP BLOOD WORK: CBC in 1 week. Please note that following tests are pending and please make sure to discuss with your primary care doctor for results on the studies in 1-2 weeks:: 1) Ova and parasites 2) TANIYA screen 3) Strongyloides Antibody screen If you have any severe abdominal pain, repeated vomiting, constipation for numerous days, continuous bleeding, or any other concerning symptoms, you should be seen by your doctor or return to the emergency department. Referrals: Dimas Drummond MD [Staff Physician] - Sanchez Arboleda MD [Staff Physician] - Judd Mcrae MD [Staff Physician] - Disposition: HOME - Home Medications Comprehensive Discharge Medication List: Ambulatory Orders Omeprazole 20 mg PO DAILY 05/30/18 This patient is new to me today: No Emergency Visit: Yes ED Registration Date: 05/30/18 Care time: The patient presented to the Emergency Department on the above date and was hospitalized for further evaluation of their emergent condition. Critical Care patient: No - Discharge Referral Referred to [facility] No
--- NOTE | 2018-06-02 15:12 | PN ---
Progress Note, Physician - Objective Vital Signs: Vital Signs Temperature 98 F 06/02/18 10:00 Pulse Rate 69 06/02/18 10:00 Respiratory Rate 19 06/02/18 10:00 Blood Pressure 112/63 06/02/18 10:00 O2 Sat by Pulse Oximetry (%) 100 06/02/18 09:00 Labs: CBC, BMP 06/02/18 09:42 05/31/18 07:00
[2018-06-02 19:13] LABS: HEP B CORE AB, IGM Negative (Negative); HEP B CORE AB, TOT Positive (Negative)
[2018-06-04 11:12] LABS: DRVVT - 37.9 sec (0.0-47.0)
== END 2018-06-02 14:57 | disposition home or self-care (01) | DRG 390 ==
LOC: JER 18:44 → JERBED 22:58 → OBSVTOIN 05-30 14:36 → J6S 05-30 18:42
PROVIDERS: ADMIT Internal Medicine; ATTEND Hospitalist
DX: K56.7 Ileus, unspecified (principal); N40.0 Benign prostatic hyperplasia without lower urinary tract symptoms; R11.2 Nausea with vomiting, unspecified; R10.13 Epigastric pain; D72.1 Eosinophilia; D69.6 Thrombocytopenia, unspecified; E66.9 Obesity, unspecified; Z68.33 Body mass index [BMI] 33.0-33.9, adult; K52.9 Noninfective gastroenteritis and colitis, unspecified; D72.819 Decreased white blood cell count, unspecified
CPT/HCPCS: 36415; 74018-TC-FY; 74021-TC-FY; 74177-TC; 80053; 80074; 80307; 82272; 83690; 83735; 84100; 84153; 85025; 85613; 85651; 85732; 86038; 86140; 86682; 86704; 86705; 86706; 86707; 86803; 87177; 87205; 87209; 87324; 87389; 87449; 93005; 93010; 99284-25; G0378; J7030

== ENCOUNTER 2021-06-12 16:55 | Emergency (ER) | payer BC ==
[2021-06-12 17:07] VITALS: BP 136/85; PULSE 80; BMI 28.8
[2021-06-12] MEDS ORDERED: predniSONE 20 MG TABLET (UD) PO ONE (20:18)
[2021-06-12] MEDS ORDERED: predniSONE 20 MG TABLET (UD) ONE (20:44)
== END 2021-06-12 21:08 | disposition home or self-care (01) ==
LOC: JER 16:55
DX: G51.0 Bell's palsy (principal)
CPT/HCPCS: 36415; 86618; 99283-25